=== PATIENT | male | born 1990 | race Caucasian/White ===

== ENCOUNTER → 2021-06-28 17:31 | Outpatient (CLI) | payer OTHER, SELFPAY | PROVIDERS: Referring Provider Family Medicine; Visit Provider Family Medicine | DX: U07.1 COVID-19 (principal) | CPT/HCPCS: 87635; U0005; U0003 ==

== ENCOUNTER 2021-06-29 17:24 | Outpatient (CLI) | payer OTHER, SELFPAY ==
[2021-06-29 17:45] VITALS: BP 142/90; PULSE 84; RESP 16; TEMP 36.7; O2SAT 100; BMI 27.2
[2021-06-29] MEDS: 0.9% Saline Lock 10 ML Syringe IV (17:49)
[2021-06-29 18:19] VITALS: BP 130/87; PULSE 78; RESP 16; TEMP 37.2; O2SAT 98
[2021-06-29 19:19] VITALS: BP 129/88; PULSE 78; RESP 16; TEMP 36.9; O2SAT 100
== END 2021-06-29 19:20 | disposition home or self-care (01) ==
LOC: MS3OUT 17:27 → MS3 17:28
PROVIDERS: Referring Provider Nurse Practitioner Acute Care; Visit Provider Nurse Practitioner Acute Care
DX: Z23 Encounter for immunization (principal); U07.1 COVID-19
CPT/HCPCS: J7050; M0245; Q0245; A4216

== ENCOUNTER 2022-07-23 17:42 | Emergency (ER) | payer OTHER, SELFPAY ==
[2022-07-23 17:43] VITALS: BP 178/92; PULSE 114; RESP 16; TEMP 36.4; O2SAT 98; BMI 30.1
--- NOTE | 2022-07-23 17:59 | EDS_ITS ---
HPI History of Present Illness HPI Narrative: Patient presents with bilateral lower extremity pain that has been getting worse over the past week. Please has been waxing and waning. Patient states the pain started in his popliteal areas bilaterally. Patient states the pain then radiated up into his posterior thighs bilaterally. Patient states his symptoms started in the left but is now bilateral. Patient admits to a mild cough. Patient also admits to mild headache. Patient describes his pain as aching. Patient states it is worse with sitting and with laying in bed. Patient admits to a long car trip from [place] recently. Patient also states that he noticed a bat in his house on 07/05/2022. Patient does not know if the bat had been in his house while he was sleeping or not. Patient states the bat flew in his house and went into a hole in the wall. Patient states he plug the hole in the wall and has not seen the bat since. Patient states he does not think he was bitten by the bat. Patient has not noticed any bite wounds. Chief Complaint: Lower Extremity Injury Informant: patient Onset/Context/Timing Onset: Weeks (1) Context: Gradual Onset Timing: Waxes and wanes Quality of Pain: Aching Location: Bilateral posterior thighs and knees Worsened by: Sitting, laying in bed Relieved by: Nothing Associated Symptoms Associated Symptoms: Negative for Parasthesia, Weakness or Loss of Funtion PFSH PFSH Medical History no medical history no medical history Home Medications dexamethasone 6 mg tablet 6 mg PO DAILY 06/29/21 [History Last Taken Unknown] Allergy/AdvReac Type Severity Reaction Status Date / Time No Known Allergies Allergy Verified 07/23/22 17:45 Surgical History no surgical history no surgical history Social History Smoking Status: Never smoker ROS ROS ED Constitutional Constitutional ED: Denies chills or fever(s) Eyes Eyes: Denies blurry vision or change in vision ENT ENT ED: Reports sinus pressure; Denies rhinorrhea or sore throat Cardiovascular Cardiovascular: Denies chest pain or palpitations Respiratory/Chest Respiratory/Chest: Denies cough or dyspnea Gastrointestinal Gastrointestinal: Denies nausea or vomiting Genitourinary Genitourinary ED: Denies dysuria or hematuria Musculoskeletal Musculoskeletal: Reports back pain; Denies neck pain Integumentary Denies abscess or rash Neurologic Neurologic: Reports headache(s); Denies weakness Allergic/Immunologic Allergic/Immunologic ED: Denies mouth swelling or urticaria EXAM Physical Exam Const Vital Signs: 07/23/22 17:43 07/23/22 18:08 Temperature 97.5 F L Temperature Source Temporal Pulse Rate 114 H Respiratory Rate 16 17 Blood Pressure 178/92 H Blood Pressure Mean 120 Pulse Ox 98 Oxygen Delivery Method Room Air Positive well nourished and well developed General Appearance ED: well developed HEENT Reports moist mucous membranes Neck supple and no JVD Resp normal respiratory effort and clear to auscultation bilaterally Cardio regular rate, regular rhythm and no murmurs GI normal to inspection, nondistended, normoactive bowel sounds and non-tender Palpation: soft Extremity normal to inspection and full ROM General Extremety ED: Negative for edema or tenderness General Extremity: Negative for edema Neuro oriented x3, CN's II-XII intact bilaterally and no sensory deficits noted Sensorium / Orientation: alert Motor Exam: strength 5/5 throughout Psych mental status grossly normal Skin no rashes or lesions noted and no wounds MDM MDM MDM Narrative Medical decision making narrative: Patient was given rabies immunoglobulin and rabies vaccine here. Patient was instructed to return on days 3, 7, and 14 for subsequent rabies vaccines. Venous duplex of the lower extremities was obtained and was negative. Patient was advised of his findings. Patient was instructed to take Tylenol or ibuprofen as needed for pain. Patient was instructed to follow-up with his primary care physician in 5 to 7 days. Patient understood and was agreeable with the plan. All questions were answered. Discharge Plan Triage Chief Complaint: Lower Extremity Injury ED Provider: Fran Murcia Dx/Rx/DC Orders Clinical Impression: Bilateral lower extremity pain, Exposure to bat without known bite Instructions: ED Pain, Acute, Uncertain Cause Prescriptions: No Action dexamethasone 6 mg tablet 6 mg PO DAILY Primary Care Provider: Care Physician,No Primary Referrals: Jordy Royal MD [Non-Staff] - 5-7 Days NOT,DEFINED [Non-Staff] - Activity Restrictions/Additional Instructions: Return in 3 days, 7 days, and 14 days for repeat rabies vaccine. Disposition Disposition: Home, Self Care
--- NOTE | 2022-07-23 18:00 | US_ITS ---
INDICATION: BILATERAL LATERAL THIGH PAIN X 1 WEEK EXAMINATION: US Venous Duplex LE Bilat Complete TECHNIQUE: Edmonds scale, pulse wave, and color flow Doppler imaging was performed of the lower extremity venous system. The bilateral greater saphenous, common femoral, femoral, and popliteal veins were interrogated. COMPARISON: None. FINDINGS: There is normal compression, augmentation, and signal throughout the visualized deep lower extremity veins. No mass or fluid collection. US/Venous Duplex Imag/Santi Extrem IMPRESSION: No sonographic evidence of deep venous thrombosis. Electronically Signed: Eloy Douglass MD at 19:14 EST ,
[2022-07-23 18:08] VITALS: RESP 17
[2022-07-23] MEDS: Rabies Immune Globulin/PF 300 UNIT/ML, 5 ML VIAL 1500 UNIT IM (18:40)
[2022-07-23] MEDS: Rabies Vaccine,Human Diploid 2.5 UNITS Vial IM (18:42)
[2022-07-23] MEDS: Rabies Immune Globulin/PF 300 UNIT/ML, 1 ML VIAL 410 UNIT IM (18:45)
--- NOTE | 2022-07-23 18:56 | CM.ED ---
SW Note Referral Source: Case Find Referral Reason: no PCP SW met with patient and patient's guest and introduced herself and role as [facility] Waste Water Operator. SW requested permission to speak to patient with guest present, patient agreed. SW inquired about patient's PCP, patient stated he did not currently have one. SW provided him with a list of [facility] and [facility] PCPs. Patient was receptive towards information. No other needs voiced at this time. SW remains available if needs arise. Julianne Soriano MSW, [facility]
== END 2022-07-23 19:11 | disposition home or self-care (01) ==
PROVIDERS: Emergency Provider Emergency Medicine; Visit Provider Emergency Medicine
DX: M79.604 Pain in right leg (principal); R51.9 Headache, unspecified; M79.605 Pain in left leg; Z20.3 Contact with and (suspected) exposure to rabies
CPT/HCPCS: 90375; 90675; 93970; 96372; 99282

== ENCOUNTER 2022-07-26 15:28 | Outpatient (CLI) | payer OTHER, SELFPAY ==
[2022-07-26 15:45] VITALS: BP 149/91; PULSE 71; RESP 16; TEMP 36.7; O2SAT 100; BMI 30.1
[2022-07-26 15:46] VITALS: BP 149/91; PULSE 76; RESP 16; TEMP 36.7; O2SAT 100; BMI 30.1
[2022-07-26] MEDS: Rabies Vaccine,Human Diploid 2.5 UNITS Vial IM (16:07)
[2022-07-26 16:08] VITALS: BMI 30.1
== END 2022-07-26 16:30 | disposition home or self-care (01) ==
DX: Z23 Encounter for immunization (principal)
CPT/HCPCS: 90471; 90675; 96372

== ENCOUNTER 2022-07-30 17:06 | Outpatient (CLI) | payer OTHER, SELFPAY ==
[2022-07-30 17:07] VITALS: BP 152/93; PULSE 70; PULSE 76; RESP 15; RESP 16; TEMP 36.7; O2SAT 100; BMI 30.1
[2022-07-30] MEDS: Rabies Vaccine,Human Diploid 2.5 UNITS Vial IM (17:32)
== END 2022-07-30 18:19 | disposition home or self-care (01) ==
DX: Z23 Encounter for immunization (principal)
CPT/HCPCS: 90675; 96372

== ENCOUNTER 2022-08-05 22:51 | Emergency (ER) | payer OTHER, SELFPAY ==
[2022-08-05 22:52] VITALS: BP 191/114; PULSE 84; RESP 16; TEMP 36; O2SAT 100; BMI 30.1
--- NOTE | 2022-08-05 23:20 | EKG12_ITS ---
Test Reason : CP Blood Pressure : / mmHG Vent. Rate : 080 BPM Atrial Rate : 080 BPM P-R Int : 152 ms QRS Dur : 096 ms QT Int : 372 ms P-R-T Axes : 052 073 007 degrees QTc Int : 429 ms Normal sinus rhythm Nonspecific T wave abnormality Abnormal ECG Confirmed by HOLA SANTOYO, BRYAN ([id number]), editorial manager DEEPIKA WHITING ([id number]) on 08/07/2022 9:04:54 AM Referred By: CARISA Confirmed By:BRYAN SIMENTAL MD
--- NOTE | 2022-08-05 23:32 | RAD_ITS ---
STUDY: X-RAY CHEST REASON FOR EXAM: Male, 32 years old. Chest pain TECHNIQUE: PA and lateral views of the chest. COMPARISON: Limited comparison December 16, 2012 FINDINGS: The lungs are clear and expanded. There is no demonstrated pleural abnormality. Normal size heart. Normal mediastinum and altaf. Normal visualized pulmonary arteries. Normal visualized aortic arch and descending thoracic aorta. Normal visualized thoracic spine. Normal visualized ribs, clavicles, and shoulders. There is no demonstrated abnormality of the visualized soft tissue structures of the upper abdomen. RAD/Chest PA and Lateral IMPRESSION: No demonstrated acute cardiopulmonary process. Electronically Signed: Zahira Whitman MD at 23:49 EST Reading Location ID and State: [facility] / [place] Tel , Service support ,
--- NOTE | 2022-08-05 23:32 | ED.VIS.CHEST ---
HPI History of Present Illness Chief Complaint: Chest Pain Informant: patient Narrative Narrative: Patient is a 32-year-old male with no single past medical history presenting with chest pain. Patient started having intermittent pain going from his left underarm into his biceps yesterday. He states it lingers and lasts about 30 minutes to an hour at a time. Not clear any aggravating or alleviating factors. He then started having episodes of chest discomfort over his left pec today. He states they have had maybe 5-10 episodes today. Again does not know any triggers. He describes it more as a tightness. He also developed discomfort in his left shoulder blade yesterday morning. He states that is intermittent and mild. Notes does seem worse if he takes a deep breath. He has had a mild cough ongoing for some time. Denies any history of DVT or PE but did return from [place] by flight yesterday. Denies any nausea, vomiting or diaphoresis. Patient was seen for leg swelling after driving from [place] earlier this month and had a negative DVT study at that time. Only family history of coronary disease is his paternal grandfather who had open heart surgery in his 70s and paternal aunts who from presumed heart attack in her 60s. No other complaints at this time. PFSH PFS Home Medications NK 08/05/22 [History Last Taken Unknown] Allergy/AdvReac Type Severity Reaction Status Date / Time No Known Allergies Allergy Verified 08/05/22 22:54 Social History Smoking Status: Never smoker ROS ROS ED Constitutional Constitutional ED: Denies chills or fever(s) ENT ENT ED: Denies sore throat Cardiovascular Cardiovascular: Reports as per HPI and chest pain Respiratory/Chest Respiratory/Chest: Reports cough; Denies dyspnea or dyspnea on exertion Gastrointestinal Gastrointestinal: Denies nausea or vomiting Musculoskeletal Musculoskeletal: Denies arthralgias, back pain or myalgias Integumentary Denies rash Neurologic Neurologic: Denies paresthesias or weakness Psychiatric Psychiatric: Denies anxiety EXAM Physical Exam Const Vital Signs: 08/05/22 22:52 08/05/22 23:06 08/05/22 23:31 Temperature 96.8 F L Temperature Source Temporal Pulse Rate 84 Respiratory Rate 16 Respiratory Effort Normal Non-Labored Blood Pressure 191/114 H Blood Pressure Mean 139 Pulse Ox 100 Oxygen Delivery Method Room Air Room Air 08/06/22 00:26 Temperature Temperature Source Pulse Rate 70 Respiratory Rate 11 L Respiratory Effort Blood Pressure 133/78 H Blood Pressure Mean 96 Pulse Ox 96 Oxygen Delivery Method Room Air Positive well nourished and well developed General Appearance ED: well developed and NAD HEENT Reports moist mucous membranes normocephalic and atraumatic Eyes PERRL and EOMs intact bilaterally Neck supple and no JVD Chest Wall inspection of chest normal and palpation of chest normal Chest Narrative: No reproducible chest wall tenderness Resp normal respiratory effort and clear to auscultation bilaterally Effort and Inspection: Negative for respiratory distress Auscultation: Negative for wheezes or diminished lung sounds Cardio regular rate, regular rhythm and no murmurs GI normal to inspection, nondistended, normoactive bowel sounds and soft to palpation Back/Spine no thoracic nor lumbar tenderness Extremity normal to inspection General Extremety ED: Negative for edema General Extremity: Negative for edema Neuro oriented x3 Sensorium / Orientation: awake and alert Motor Exam: Negative for general weakness Psych mental status grossly normal Skin no rashes or lesions noted Heart Score History: Slightly/Non-Suspicious ECG: Nonspecific Repolarization Age: </= 45 years Risk Factors: 1 or 2 Risk Factors Troponin: </= Normal Limit Score: 2 MDM MDM MDM Narrative Medical decision making narrative: Patient is evaluated for left arm pain, left-sided chest pain as well as mild left shoulder blade pain. Initial vital signs are significant for hypertension however on repeat without any intervention his blood pressure normalizes. EKG does not show any acute and I do not have any comparisons. CBC, BMP, delta high-sensitivity troponin and D-dimer are all normal. Patient is low risk per Wells criteria I do not think a CTA is indicated. Do not suspect PE. Given his nonischemic EKG and normal repeat high-sensitivity troponins I do not think this is ACS I do not think requires admission for further cardiac evaluation. Chest x-ray does not show any pneumothorax or pneumonia. Patient declines any pain medication in the ER. Is given referral for primary care doctor for outpatient follow-up. Will be discharged home. Encouraged to alternate ibuprofen and Tylenol at home for pain. Low suspicion for pericarditis or myocarditis given the EKG and troponins. We discharged home. Lab Data Attestation: I reviewed the patient's lab results. Labs: Laboratory Results - last 24 hr 08/05/22 08/05/22 08/05/22 23:05 23:05 23:05 WBC 7.9 RBC 5.10 Hgb 14.7 Hct 41.6 MCV 81.6 MCH 28.8 MCHC 35.3 RDW Std Deviation 35.2 RDW Coeff of Patsy 11.9 Plt Count 243 MPV 9.5 Immature Gran % (Auto) 1.100 H Neut % (Auto) 46.5 L Lymph % (Auto) 39.4 [place] % (Auto) 9.1 Eos % (Auto) 3.5 Baso % (Auto) 0.4 Absolute Neuts (auto) 3.7 Absolute Lymphs (auto) 3.11 Nucleated RBC % 0 D-Dimer Quant (PE/DVT) < 0.27 L Sodium 139 Potassium 3.8 Chloride 104 Carbon Dioxide 28.0 Anion Gap 7 BUN 17 Creatinine 1.02 Estim Creat Clear Calc 109.34 Est GFR (MDRD) Af Amer 110 Est GFR (MDRD) Non-Af 91 BUN/Creatinine Ratio 16.7 Glucose 103 Calcium 9.6 Troponin I High Sens 43 08/06/22 01:35 WBC RBC Hgb Hct MCV MCH MCHC RDW Std Deviation RDW Coeff of Patsy Plt Count MPV Immature Gran % (Auto) Neut % (Auto) Lymph % (Auto) [place] % (Auto) Eos % (Auto) Baso % (Auto) Absolute Neuts (auto) Absolute Lymphs (auto) Nucleated RBC % D-Dimer Quant (PE/DVT) Sodium Potassium Chloride Carbon Dioxide Anion Gap BUN Creatinine Estim Creat Clear Calc Est GFR (MDRD) Af Amer Est GFR (MDRD) Non-Af BUN/Creatinine Ratio Glucose Calcium Troponin I High Sens 46 Radiography Diagnostic Testing: Clinical Impression(s) from Imaging Studies Chest X-Ray 08/05/22 23:32 IMPRESSION: No demonstrated acute cardiopulmonary process. Electronically Signed: Zahira Whitman MD at 23:49 EST , Rhythm Strip Rhythm Strip: Sinus Rhythm Rate: 80 Ectopy: None EKG Initial EKG: Attestation: I personally reviewed and interpreted this EKG as follows: Interpretation: Sinus Rhythm Comments: Normal sinus rhythm at a rate of 80 bpm Normal axis Normal intervals Normal ST segments with nonspecific T wave abnormalities in V3 through V6 Prior EKG tracings: not available for review Prior: No Prior Discharge Plan Triage Chief Complaint: Chest Pain ED Provider: Jeanine Kirkpatrick Dx/Rx/DC Orders Clinical Impression: Arm pain, left, Left-sided chest pain, Acute left-sided thoracic back pain Instructions: ED Chest Pain, Noncardiac Prescriptions: No Action NK Primary Care Provider: Care Physician,No Primary Referrals: Fast,Carmen, DO [Med Staff - Assistant Housekeeping Manager] - As soon as possible Care Physician,No Primary [Primary Care Provider] - Disposition Disposition: Home, Self Care
[2022-08-05 23:52] LABS: Absolute Lymphocyte Count 3.11 X10^3/uL (0.83-4.51); Absolute Neutrophil Count 3.7 X10^3/uL (2.0-7.7); Basophil# 0.03 X10^3/uL; Basophil% 0.4 % (0-1); Eosinophil# 0.28 X10^3/uL; Eosinophils% 3.5 % (0-5); Hematocrit 41.6 % (40-54); Hemoglobin 14.7 g/dL (13.0-16.5); Lymphocyte # 3.11 X10^3/ul (0.83-4.51); Lymphocyte % 39.4 % (19-41); Mean Corp Hgb Conc 35.3 g/dL (32-36); Mean Corpuscular Hgb 28.8 pg (27.0-32.0); Mean Corpuscular Volume 81.6 fL (80-94); Mean Platelet Vol. 9.5 fl (6.2-12.0); Monocyte# 0.72 X10^3/uL; Monocyte% 9.1 % (0-10); NRBC Flagged by Analyzer 0 % (0-5); Neutrophil # 3.66 X10^3/uL (2.7-7.7); Neutrophil % 46.5 % (47-70); Platelet Count 243 K/mm3 (150-450); RBC Distribution Width CV 11.9 % (11.6-14.6); RBC Distribution Width SD 35.2 fl (35.1-43.9); White Blood Count 7.9 K/mm3 (4.4-11.0)
[2022-08-06] LABS: Anion Gap 7 (5-15); BUN 17 mg/dL (7-18); BUN/Creat Ratio 16.7 RATIO (10-20); Calcium,Total 9.6 mg/dL (8.5-10.1); Chloride 104 mmol/L (98-107); Creatinine, Serum 1.02 mg/dL (0.70-1.30); D-Dimer Quantitative (DVT/PE) < 0.27 FEU/ug/m (0.27-0.49); EST Glomerular Filtration Rate 91 mL/min (>60); Est Glom Filt Rate - Afr Amer 110 mL/min (>60); Estimated Creatinine Clearance 109.34 ml/min; Glucose 103 mg/dL (74-106); Potassium 3.8 mmol/L (3.5-5.1); Sodium Level 139 mmol/L (136-145); Troponin-I HS (w/2H Reflex) 43 pg/mL (3.0-78.0)
[2022-08-06 00:26] VITALS: BP 133/78; PULSE 70; RESP 11; O2SAT 96
[2022-08-06 01:33] LABS: Reflex Troponin-HS? (from REC) Y
[2022-08-06 01:58] LABS: Troponin-I HS 46 pg/mL (3.0-78.0)
[2022-08-06 02:54] VITALS: BP 127/82; PULSE 63; RESP 18; O2SAT 97
== END 2022-08-06 02:55 | disposition home or self-care (01) ==
PROVIDERS: Emergency Provider Emergency Medicine; Visit Provider Emergency Medicine
DX: R07.9 Chest pain, unspecified (principal); M79.602 Pain in left arm; M54.6 Pain in thoracic spine
CPT/HCPCS: 71046; 80048; 84484; 85025; 85379; 93005; 99284; A4216

== ENCOUNTER 2022-08-06 02:12 | Outpatient (CLI) | payer OTHER, SELFPAY ==
[2022-08-06] MEDS: Rabies Vaccine,Human Diploid 2.5 UNITS Vial IM (02:57)
[2022-08-06 03:04] VITALS: BP 121/82; PULSE 63; RESP 18; O2SAT 97; BMI 30.1
== END 2022-08-06 02:55 | disposition home or self-care (01) ==
LOC: ED 05:20
DX: Z23 Encounter for immunization (principal)
CPT/HCPCS: 90675; 96372

== ENCOUNTER → 2022-11-25 | Outpatient (CLI) | payer OTHER, SELFPAY ==
[2022-11-25 11:49] LABS: Anion Gap 6 (5-15); BUN 16 mg/dL (7-18); BUN/Creat Ratio 15.2 RATIO (10-20); Calcium,Total 9.1 mg/dL (8.5-10.1); Chloride 107 mmol/L (98-107); Cholesterol 183 mg/dL (200); Creatinine, Serum 1.05 mg/dL (0.70-1.30); EST Glomerular Filtration Rate 88 mL/min (>60); Est Glom Filt Rate - Afr Amer 106 mL/min (>60); Glucose 88 mg/dL (74-106); High Density Lipoprotein 37 mg/dL; Sodium Level 141 mmol/L (136-145); Triglycerides 112 mg/dL; Very Low Density Lipoprotein 22 mg/dL (5-40)
== END | disposition home or self-care (01) ==
LOC: MFPLAB 08:28
PROVIDERS: PCP Family Medicine; Visit Provider Family Medicine
DX: Z00.00 Encounter for general adult medical examination without abnormal findings (principal)
CPT/HCPCS: 36415; 80048; 80061

== ENCOUNTER → 2022-12-04 | Outpatient (CLI) | payer OTHER, SELFPAY ==
--- NOTE | 2022-12-04 10:06 | CT_ITS ---
STUDY: CT ABDOMEN AND PELVIS WITH CONTRAST REASON FOR EXAM: Male, 32 years old. ABD PAIN- EPIGASTRIC AND RUQ PAIN RADIATION DOSAGE (If Supplied By Facility): CTDIvol = ( 14.55 ) mGy, DLP = ( 1107.10 ) mGycm TECHNIQUE: Transaxial images were obtained from the dome of the diaphragm to the symphysis pubis with oral contrast. Oral and IV Gastrografin and 100mL Isovue-370 was administered. Sagittal and coronal images were reconstructed. Individualized dose optimization techniques were used for this CT. COMPARISON: None. FINDINGS: The visualized lung bases are unremarkable. The visualized portions of the heart are within normal limits. Normal liver. Normal gallbladder and extrahepatic biliary system. Normal spleen. Normal pancreas. Normal bilateral adrenal glands. Normal right kidney. Normal left kidney. Normal visualized stomach. Normal small intestine. Normal colon. The appendix is visualized and appears normal. Appendix seen on coronal recon images 50 through 57 Normal abdominal aorta. Normal inferior vena cava. Normal retroperitoneum. Normal urinary bladder. Normal abdominal wall. Normal osseous structures. CT/Abdomen/Pelvis WITH Contrast IMPRESSION: No suspicious solid organ abnormality No free intraperitoneal fluid, air, or suspicious adenopathy Normal appendix visualized Electronically Signed: Erwin Voss MD at 12:52 EDT ,
== END | disposition home or self-care (01) ==
LOC: CT 10:05
PROVIDERS: PCP Family Medicine; Referring Provider Family Medicine; Visit Provider Family Medicine
DX: R10.9 Unspecified abdominal pain (principal)
CPT/HCPCS: 74177; Q9967

== ENCOUNTER → 2022-12-04 | Outpatient (CLI) | payer OTHER, SELFPAY ==
[2022-12-04 10:09] LABS: Absolute Lymphocyte Count 1.96 X10^3/uL (0.83-4.51); Absolute Neutrophil Count 2.6 X10^3/uL (2.0-7.7); Basophil# 0.02 X10^3/uL; Basophil% 0.4 % (0-1); Eosinophil# 0.15 X10^3/uL; Eosinophils% 2.8 % (0-5); Hematocrit 44.9 % (40-54); Hemoglobin 15.2 g/dL (13.0-16.5); Lymphocyte # 1.96 X10^3/ul (0.83-4.51); Lymphocyte % 36.8 % (19-41); Mean Corp Hgb Conc 33.9 g/dL (32-36); Mean Corpuscular Hgb 28.4 pg (27.0-32.0); Mean Corpuscular Volume 83.9 fL (80-94); Mean Platelet Vol. 9.4 fl (6.2-12.0); Monocyte# 0.57 X10^3/uL; Monocyte% 10.7 % (0-10); NRBC Flagged by Analyzer 0 % (0-5); Neutrophil # 2.61 X10^3/uL (2.7-7.7); Neutrophil % 49.1 % (47-70); Platelet Count 211 K/mm3 (150-450); RBC Distribution Width CV 12.5 % (11.6-14.6); RBC Distribution Width SD 37.8 fl (35.1-43.9); Red Blood Count 5.35 M/mm3 (4.6-6.2); White Blood Count 5.3 K/mm3 (4.4-11.0)
[2022-12-04 11:01] LABS: ALB/GLOB Ratio 1.4 RATIO (0.9-2.4); AST(SGOT) 17 U/L (15-37); Alanine Aminotransfer ALT/SGPT 24 U/L (16-61); Albumin, Serum 4.3 g/dL (3.2-5.0); Alkaline Phosphatase 47 U/L (45-117); Anion Gap 9 (5-15); BUN 14 mg/dL (7-18); BUN/Creat Ratio 14.6 RATIO (10-20); Calcium,Total 9.3 mg/dL (8.5-10.1); Chloride 104 mmol/L (98-107); Creatinine, Serum 0.96 mg/dL (0.70-1.30); EST Glomerular Filtration Rate 98 mL/min (>60); Est Glom Filt Rate - Afr Amer 118 mL/min (>60); Globulin 3.1 g/dL (2.2-4.2); Glucose 97 mg/dL (74-106); Lipase 33 U/L (13-75); Potassium 3.7 mmol/L (3.5-5.1); Protein, Total 7.4 g/dL (6.4-8.2); Sodium Level 139 mmol/L (136-145)
[2022-12-06 07:08] LABS: HEPATITIS B SURFACE AG Negative (Negative); Hep C Antibodies Non Reactive (Non Reactive); Hepatitis A IgM Antibody Negative (Negative); Hepatitis B Core AB IgM Negative (Negative)
== END | disposition home or self-care (01) ==
LOC: MFPLAB 09:20
PROVIDERS: PCP Family Medicine; Visit Provider Family Medicine
DX: R10.9 Unspecified abdominal pain (principal)
CPT/HCPCS: 36415; 80053; 80074; 83690; 85025

== ENCOUNTER → 2023-04-23 | Outpatient (CLI) | payer OTHER, SELFPAY ==
[2023-04-23 12:31] LABS: Erythrocyte Sedimentation Rate < 1 mm/hr (0-20)
[2023-04-23 13:18] LABS: CRP < 2.90 mg/L (0.0-3.0)
[2023-04-24 08:12] LABS: Lyme Scn Total Ab w/Rflx Negative (Negative)
[2023-04-24 14:09] LABS: ANTINUCLEAR ANTIBODIES DIRECT Negative (Negative)
== END | disposition home or self-care (01) ==
LOC: MFPLAB 10:23
PROVIDERS: PCP Family Medicine; Visit Provider Family Medicine
DX: M25.50 Pain in unspecified joint (principal)
CPT/HCPCS: 36415; 85652; 86038; 86140; 86618

== ENCOUNTER → 2023-05-08 | Outpatient (CLI) | payer OTHER, SELFPAY ==
[2023-05-08 15:18] LABS: Absolute Lymphocyte Count 2.06 X10^3/uL (0.83-4.51); Absolute Neutrophil Count 3.1 X10^3/uL (2.0-7.7); Basophil# 0.02 X10^3/uL; Basophil% 0.3 % (0-1); Eosinophil# 0.18 X10^3/uL; Eosinophils% 3.1 % (0-5); Hematocrit 44.1 % (40-54); Hemoglobin 14.7 g/dL (13.0-16.5); Lymphocyte # 2.06 X10^3/ul (0.83-4.51); Mean Corp Hgb Conc 33.3 g/dL (32-36); Mean Corpuscular Hgb 28.2 pg (27.0-32.0); Mean Corpuscular Volume 84.5 fL (80-94); Mean Platelet Vol. 9.9 fl (6.2-12.0); Monocyte% 8.5 % (0-10); NRBC Flagged by Analyzer 0 % (0-5); Neutrophil % 52.8 % (47-70); Platelet Count 218 K/mm3 (150-450); RBC Distribution Width CV 12.3 % (11.6-14.6); RBC Distribution Width SD 37.3 fl (35.1-43.9); Red Blood Count 5.22 M/mm3 (4.6-6.2); White Blood Count 5.9 K/mm3 (4.4-11.0)
[2023-05-08 15:48] LABS: ALB/GLOB Ratio 1.3 RATIO (0.9-2.4); AST(SGOT) 34 U/L (15-37); Alanine Aminotransfer ALT/SGPT 40 U/L (16-61); Albumin, Serum 4.3 g/dL (3.2-5.0); Alkaline Phosphatase 47 U/L (45-117); Anion Gap 6 (5-15); BUN 17 mg/dL (7-18); BUN/Creat Ratio 14.8 RATIO (10-20); Calcium,Total 9.1 mg/dL (8.5-10.1); Chloride 105 mmol/L (98-107); Creatinine, Serum 1.15 mg/dL (0.70-1.30); EST Glomerular Filtration Rate 79 mL/min (>60); Est Glom Filt Rate - Afr Amer 96 mL/min (>60); Globulin 3.2 g/dL (2.2-4.2); Glucose 87 mg/dL (74-106); Potassium 3.7 mmol/L (3.5-5.1); Protein, Total 7.5 g/dL (6.4-8.2); Sodium Level 139 mmol/L (136-145)
== END | disposition home or self-care (01) ==
LOC: MTLAB 12:36
PROVIDERS: PCP Family Medicine; Referring Provider Family Medicine; Visit Provider Family Medicine
DX: R42 Dizziness and giddiness (principal)
CPT/HCPCS: 36415; 80053; 85025

== ENCOUNTER → 2023-07-03 | Outpatient (CLI) | payer OTHER, SELFPAY ==
[2023-07-03 10:28] LABS: Absolute Lymphocyte Count 1.79 X10^3/uL (0.83-4.51); Basophil# 0.02 X10^3/uL; Basophil% 0.4 % (0-1); Eosinophil# 0.15 X10^3/uL; Eosinophils% 2.7 % (0-5); Hematocrit 45.5 % (40-54); Hemoglobin 15.4 g/dL (13.0-16.5); Lymphocyte # 1.79 X10^3/ul (0.83-4.51); Lymphocyte % 32.5 % (19-41); Mean Corp Hgb Conc 33.8 g/dL (32-36); Mean Corpuscular Hgb 28.3 pg (27.0-32.0); Mean Corpuscular Volume 83.5 fL (80-94); Mean Platelet Vol. 9.6 fl (6.2-12.0); Monocyte# 0.51 X10^3/uL; Monocyte% 9.3 % (0-10); NRBC Flagged by Analyzer 0 % (0-5); Neutrophil # 3.01 X10^3/uL (2.7-7.7); Neutrophil % 54.7 % (47-70); Platelet Count 209 K/mm3 (150-450); RBC Distribution Width CV 12.7 % (11.6-14.6); RBC Distribution Width SD 38.2 fl (35.1-43.9); Red Blood Count 5.45 M/mm3 (4.6-6.2); White Blood Count 5.5 K/mm3 (4.4-11.0)
[2023-07-03 10:39] LABS: ALB/GLOB Ratio 1.4 RATIO (0.9-2.4); AST(SGOT) 11 U/L (15-37); Alanine Aminotransfer ALT/SGPT 20 U/L (16-61); Albumin, Serum 4.1 g/dL (3.2-5.0); Alkaline Phosphatase 43 U/L (45-117); Anion Gap 6 (5-15); BUN 15 mg/dL (7-18); BUN/Creat Ratio 14.4 RATIO (10-20); Calcium,Total 9.3 mg/dL (8.5-10.1); Chloride 107 mmol/L (98-107); Creatinine, Serum 1.04 mg/dL (0.70-1.30); EST Glomerular Filtration Rate 89 mL/min (>60); Est Glom Filt Rate - Afr Amer 107 mL/min (>60); Glucose 96 mg/dL (74-106); Lipase 33 U/L (13-75); Potassium 4.3 mmol/L (3.5-5.1); Protein, Total 7.1 g/dL (6.4-8.2); Sodium Level 141 mmol/L (136-145)
== END | disposition home or self-care (01) ==
LOC: MFPLAB 09:07
PROVIDERS: PCP Family Medicine; Visit Provider Family Medicine
DX: R10.9 Unspecified abdominal pain (principal)
CPT/HCPCS: 36415; 80053; 83690; 85025

== ENCOUNTER → 2023-07-03 | Outpatient (CLI) | payer OTHER, SELFPAY ==
--- NOTE | 2023-07-03 09:20 | US_ITS ---
STUDY: ABDOMINAL ULTRASOUND - RIGHT UPPER QUADRANT REASON FOR VISIT: Male, 32 years old abdominal pain. TECHNIQUE: Ultrasound evaluation of the right upper quadrant was performed with real-time and static stovall-scale imaging. TECHNICAL QUALITY: Adequate. COMPARISON: None. FINDINGS: Liver: The liver measures 15.7 cm. There is normal echogenicity of the liver. The bile ducts are within normal limits. There is hepatic color flow. The direction of portal flow is hepatopetal. There is no demonstrated mass lesion. Gallbladder: Normal distended gallbladder. The gallbladder wall measures 1.5 mm. There is a negative sonographic Medina''s sign. There is no pericholecystic fluid. There are no gallstones. Common Bile Duct (C.B.D.): The common bile duct measures 4.4 mm. Pancreas: There is nonvisualization of the pancreas due to overlying bowel gas. There is normal echogenicity of the pancreas. There is no demonstrated pancreatic mass or cyst. Right Kidney: Normal size of the right kidney. The right kidney measures 10 cm x 5 cm x 5.3 cm. Normal renal cortex. The right cortex measures 1.4 cm. There is no demonstrated renal mass or cyst. There is no right hydronephrosis. US/Abdomen Limited IMPRESSION: Normal right upper quadrant ultrasound examination. Electronically Signed: Frankie Morillo MD at 13:52 EST ,
== END | disposition home or self-care (01) ==
LOC: US 09:18
PROVIDERS: PCP Family Medicine; Referring Provider Family Medicine; Visit Provider Family Medicine
DX: R10.9 Unspecified abdominal pain (principal)
CPT/HCPCS: 76705

== ENCOUNTER → 2023-07-29 | Outpatient (CLI) | payer OTHER, SELFPAY ==
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
[2023-07-29 13:22] LABS: Thyroid Stim Hormone (TSH) 1.34 uIU/mL (0.358-3.74)
== END | disposition home or self-care (01) ==
LOC: LAB 11:56
PROVIDERS: PCP Family Medicine; Referring Provider Internal Medicine Cardiovascular Disease; Visit Provider Internal Medicine Cardiovascular Disease
DX: R00.0 Tachycardia, unspecified (principal); R00.2 Palpitations
CPT/HCPCS: 36415; 84443

== ENCOUNTER → 2023-08-04 | Outpatient (CLI) | payer OTHER, SELFPAY ==
--- NOTE | 2023-08-04 10:36 | ECHOD_ITS ---
Reason For Study: TACHYCARDIA Procedure This was a 2D Doppler, Color Flow transthoracic echocardiogram. Exam performed in department. Left Ventricle Normal size and thickness. The left ventricular ejection fraction is 65 %. Normal diastology for age. Right Ventricle A moderator band is seen in the right ventricle. Atria The left and right atria are normal. Mitral Valve Trivial mitral valve insufficiency. Tricuspid Valve Trivial tricuspid valve insufficiency. Right ventricular systolic pressure estimated to be 40 mmHg. Mild pulmonary hypertension. Aortic Valve Trisinus/trileaflet aortic valve. Pulmonic Valve Trivial pulmonic valve insufficiency. Great Vessels Normal sized aortic root. Pericardium/Pleural No pericardial effusion. MMode/2D Measurements & Calculations LVIDd: 4.4 cm IVSd: 1.1 cm Ao root diam: 3.3 cm LVIDs: 2.9 cm LVPWd: 1.0 cm RVDd: 4.2 cm FS: 35.0 % LAV(MOD-bp): 46.3 ml LVAd ap4: 32.7 cm2 SV(MOD-sp4): 69.2 ml LAV(MOD-bp) Indexed: 22.2 ml/m2 LVLd ap4: 8.7 cm LAV(MOD-sp2): 43.4 ml EDV(MOD-sp4): 98.8 ml LAV(MOD-sp4): 48.6 ml EDV(sp4-el): 104.3 ml LVAs ap4: 15.6 cm2 LVLs ap4: 7.2 cm ESV(MOD-sp4): 29.5 ml ESV(sp4-el): 28.9 ml EF(MOD-sp4): 70.1 % EF(sp4-el): 72.3 % SV(sp4-el): 75.4 ml LA A4 area: 18.7 cm2 LA dimension(2D): 3.7 cm RA A4 area: 16.7 cm2 Time Measurements MV dec time: 0.20 sec Doppler Measurements & Calculations MV E max vitaly: 93.1 cm/sec Lat Peak E' Vitaly: 18.0 cm/sec Med Peak E' Vitaly: 13.1 cm/sec MV A max vitaly: 50.7 cm/sec E/E' lat: 5.2 E/E' med: 7.1 MV E/A: 1.8 Ao V2 max: 137.4 cm/sec LV V1 max: 114.5 cm/sec PA V2 max: 141.0 cm/sec Ao max P.6 mmHg LV V1 max P.2 mmHg TR max vitaly: 297.1 cm/sec TR max P.3 mmHg ECHO/Echo Complete Interpretation Summary The left ventricular ejection fraction is 65 %. Right ventricular systolic pressure estimated to be 40 mmHg. Ordering Physician: Oswald Briggs Referring Physician: BRYAN MONTANO Performed By: Modesta Erazo RDCS
--- OUTSIDE RECORDS SUMMARY | 2023-08-04 12:10 | XMS RPT_ITS | CCD ---
Author Name Unknown Address [address] [place] [address] Organization [facility] Care Team Providers Care Public Service Administrator Name Role Phone Unavailable Primary Care Provider [...] 17:19-0500 Body temperature 98.29 [degF] Gilberto Hopper APRN.ANIMAL ANATOMIST Work Phone: [facility] 07-23-2022 17:19-0500 Body weight 96.71 kg Gilberto Hopper APRN.ANIMAL ANATOMIST Work Phone: [facility] 07-23-2022 17:19-0500 Diastolic blood pressure 98 mm[Hg] Gilberto Hopper APRN.ANIMAL ANATOMIST Work Phone: [facility] 07-23-2022 17:19-0500 Heart rate 101 /min Gilberto Hopper APRN.ANIMAL ANATOMIST Work Phone: [facility] 07-23-2022 17:19-0500 Respiratory rate 16 /min Gilberto Hopper APRN.ANIMAL ANATOMIST Work Phone: [facility] 07-23-2022 17:19-0500 SaO2% (BldA) [Mass fraction] 99 % Gilberto Hopper APRN.CNP Work Phone: [facility] 07-23-2022 17:19-0500 Systolic blood pressure 152 mm[Hg] Gilberto Hopper APRN.CNP Work Phone: [facility] Encounters Encounter Date Encounter Type Care Provider Facility Start: 07-23-2022 End: 07-23-2022 ambulatory Facility:[facility] Start: 07-23-2022 End: 07-23-2022 Patient encounter procedure Gilberto Hopper APRN.ANIMAL ANATOMIST Work Phone: [facility] Plan of Treatment Date Care Activity Detail Author Start: 07-14-2022 DEPRESSION ASSESSMENT DEPRESSION ASS ESSMENT [facility] Start: 03-14-2022 Influenza vaccination INFLUENZA (#1) [facility] Start: 2010 HEPATITIS C SCREENING HEPATITIS C SC REETIMOTHY [facility] Start: 2010 HIV SCREENING HIV SCREENING [facility] Start: 01-24-2005 Urine microalbumin profile DTAP,TDAP ,TD (6 - Tdap) [facility] Start: 01-05-1993 COVID-19 VACCINE (#1) COVID-19 VACCI NE (#1) [facility] Immunizations Immunization Date Immunization Notes Care Provider Sonia beckford 02-10-2007 Meningococcal, MCV4, unspecified conjugate formulation(groups A, C, Y and W-135) Gilberto Hopper APRN.ANIMAL ANATOMIST Work Phone: [facility] 01-23-2005 measles, mumps and rubella virus vaccine Gilberto Hopper APRN.ANIMAL ANATOMIST Work Phone: [facility] Work Phone: 01-23-2005 tetanus and diphther ia toxoids, adsorbed, preservative free, for adult use (2 Lf of tetanus toxoid and 2 Lf of diphtheria toxoid) Gilberto Hopper APRN.ANIMAL ANATOMIST Work Phone: [facility] Work Phone: 03-02-2003 hepatitis B vaccine, pediatric or pediatric/adolescent dosage Gilberto Hopper APRN.ANIMAL ANATOMIST Work Phone: [facility] Work Phone: 03-08-2002 hepatitis B vaccine, pediatric or pediatric/adolescent dosage Gilberto King DAVIDN.ANIMAL ANATOMIST Work Phone: [facility] Work Phone: 12-16-2001 hepatitis B vaccine, pediatric or pediatric/adolescent dosage Gilberto Ward CUSTOMER SERVICE REP.[facility] Work Phone: [facility] Work Phone: 08-17-1997 diphtheria, tetanus toxoids and acellular pertussis vaccine Gilberto Ward CUSTOMER SERVICE REP.[facility] Work Phone: [facility] Work Phone: 08-17-1997 trivalent poliovirus vaccine, live, oral Gilberto King DAVIDN.[facility] Work Phone: [facility] Work Phone: 06-13-1995 Chicken Pox (disease) Jason Hopper APRN.ANIMAL ANATOMIST Work Phone: [facility] Work Phone: 01-08-1994 diphtheria, tetanus toxoids and acellular pertussis vaccine Gilberto King DAVIDN.[facility] Work Phone: [facility] Work Phone: 01-08-1994 trivalent poliovirus vaccine, live, oral Gilberto King DAVIDN.[facility] Work Phone: [facility] Work Phone: 10-08-1993 haemophilus influenz ae type b vaccine, HbOC conjugate Gilberto King DAVIDN.ANIMAL ANATOMIST Work Phone: [facility] Work Phone: 10-08-1993 measles, mumps and rubella virus vaccine Gilberto King DAVIDN.ANIMAL ANATOMIST Work Phone: [facility] Work Phone: 01-11-1993 diphtheria, tetanus toxoids and pertussis vaccine Gilberto King DAVIDN.[facility] Work Phone: [facility] Work Phone: 01-11-1993 haemophilus influenz ae type b vaccine, HbOC conjugate Gilberto Ward CUSTOMER SERVICE REP.ANIMAL ANATOMIST Work Phone: [facility] Work Phone: 1992 diphtheria, tetanus toxoids and pertussis vaccine Gilberto Ward CUSTOMER SERVICE REP.ANIMAL ANATOMIST Work Phone: [facility] Work Phone: 1992 haemophilus influenz ae type b vaccine, HbOC conjugate Gilberto Ward CUSTOMER SERVICE REP.ANIMAL ANATOMIST Work Phone: [facility] Work Phone: 1992 trivalent poliovirus vaccine, live, oral Gilberto Ward CUSTOMER SERVICE REP.ANIMAL ANATOMIST Work Phone: [facility] Work Phone: 1992 diphtheria, tetanus toxoids and pertussis vaccine Gilberto Ward CUSTOMER SERVICE REP.ANIMAL ANATOMIST Work Phone: [facility] Work Phone: 1992 haemophilus influenz ae type b vaccine, HbOC conjugate Gilberto Hopper CUSTOMER SERVICE REP.ANIMAL ANATOMIST Work Phone: [facility] Work Phone: 1992 trivalent poliovirus vaccine, live, oral Gilberto Ward CUSTOMER SERVICE REP.ANIMAL ANATOMIST Work Phone: [facility] Work Phone: Payers Date Payer Category Payer Private Health Insurance [facility] CHOICE PLUS [id number] 2022-Present [phone] [address] [address] [place] [address] O [id number] 2022 Unknown [id number] Social History Date Type Detail Facility Tobacco smoking stat [facility] Never smoked tobacco [facility] Start: 07-23-2022 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 Author [...] ICD10: R42 As above. Gilberto Hopper APRN.CNP [facility] History of Present illness Narrative 07-23-2022 [...] Gilberto Hopper APRN.DICK documented in this encounter [facility] Evaluation note Note Date & Type Note Facility documented in this encounter [facility] Summary Purpose Family History No Family History [...] or prosecute any alcohol or drug abuse patient.[facility] Reason for Visit (unrecogniz ed section and [...] BE BASED ON THE PRIMARY CLINICAL RECORDS. [employer] provides no warranty or guarantee of the accuracy or completeness of information in this document.
--- NOTE | 2023-08-07 16:00 | STRESSREP_ITS ---
Stress Test Report Date: 08/04/2023 Procedure: Exercise tolerance test Indications: Chest pain Consent: Per the patient Procedure: The patient exercised on a Jared protocol for 6 minutes and 30 seconds achieving a peak heart rate of 176 bpm (93% predicted maximal heart rate) with a peak blood pressure 180/58 mmHg and a peak MET capacity of approximately 8.5 MET's. The baseline ECG demonstrated sinus rhythm with nonspecific ST changes. The peak exercise ECG demonstrated ST depressions that may denote ischemia. However specificity is reduced because of baseline changes. There were no cardiac dysrhythmias pretest, during exercise, or recovery. The functional capacity was considered average. The patient had no complaints of chest discomfort during exercise or recovery. The examination was discontinued secondary to target heart rate being achieved. Impression: 1. Technically adequate (percent predicted maximal heart rate greater than 85%) exercise tolerance test 2. Peak exercise ECG with ST changes that may denote ischemia. However specificity is reduced because of baseline abnormalities. Consider repeat testing with imaging or coronary CT angio for further evaluation. 3. There were no cardiac dysrhythmias during exercise or recovery This note was generated with [employer] software. It may contain incorrect words, spelling, and punctuation that were not noted in checking the note before signing.
== END | disposition home or self-care (01) ==
PROVIDERS: PCP Family Medicine; Referring Provider Internal Medicine Cardiovascular Disease; Visit Provider Internal Medicine Cardiovascular Disease
DX: R00.0 Tachycardia, unspecified (principal); R42 Dizziness and giddiness; R06.09 Other forms of dyspnea
CPT/HCPCS: 93017; 93306

== ENCOUNTER → 2023-08-15 | Outpatient (CLI) | payer OTHER, SELFPAY ==
--- NOTE | 2023-08-15 09:34 | NM_ITS ---
CLINICAL: 33-year-old male with history of abdominal pain. RADIONUCLIDE HEPATOBILIARY SCINTIGRAPHY COMPARISON: Abdominal ultrasound report 07/03/2023 FINDINGS: Following the intravenous administration of 5.3 mCi of 99m Tc Mebrofenin, hepatobiliary images reveal: 1. Relatively prompt and homogeneous radiopharmaceutical concentration is noted by a normal sized liver. No parenchymal defects are identified. 2. Gallbladder activity is identified at 30 minutes post radiopharmaceutical administration. 3. Small intestinal tract is observed at 15 minutes following tracer injection minutes. 4. Washout of the radiopharmaceutical by the hepatic parenchyma appears qualitatively normal. Cholecystokinin (0.02 ug/kg) was administered intravenously over a 30-minute period. The post CCK gallbladder ejection fraction calculated at 20 minutes following Cholecystokinin administration was noted to be 94.0 % (normal greater than 35%). During 30 minutes of post CCK imaging, there is no scintigraphic evidence of reflux of the radiotracer into the common hepatic duct or refilling of the gallbladder. PA/Hepatobilliary Img w/Pharm Int IMPRESSION: 1. NORMAL 99m Tc Mebrofenin hepatobiliary imaging examination with Cholecystokinin. A. A gallbladder ejection fraction calculated to be greater than 35% following the administration of Cholecystokinin makes the probability of functional hepatobiliary disease (gallbladder and/or sphincter of Oddi dyskinesia) and/or organic hepatobiliary disease (chronic acalculous cholecystitis and/or cystic duct syndrome) to be low. ([place] Mendez et al, Journal of Nuclear Medicine 32:1695, 1991). Electronically Signed: Braden Rosas DO at 23:31 EST ,
== END | disposition home or self-care (01) ==
LOC: NM 09:34
PROVIDERS: PCP Family Medicine; Referring Provider Family Medicine; Visit Provider Family Medicine
DX: R10.9 Unspecified abdominal pain (principal)
CPT/HCPCS: 78227; A9537; J2805

== ENCOUNTER 2023-09-23 20:02 | Emergency (ER) | payer OTHER, SELFPAY ==
[2023-09-23 20:03] VITALS: BP 180/91; PULSE 103; RESP 18; TEMP 36.6; O2SAT 100; BMI 28.8
--- NOTE | 2023-09-23 20:54 | EKG12_ITS ---
Test Reason : CP Blood Pressure : / mmHG Vent. Rate : 090 BPM Atrial Rate : 090 BPM P-R Int : 154 ms QRS Dur : 092 ms QT Int : 342 ms P-R-T Axes : 059 062 007 degrees QTc Int : 418 ms Normal sinus rhythm Nonspecific T wave abnormality Abnormal ECG Confirmed by DOM SANTOYO, ELVIS ([id number]), associate editor JOSE ANGEL MONCADA ([id number]) on 09/25/2023 6:22:04 AM Referred By: Confirmed By:ELVIS FERNANDES MD
[2023-09-23 21:02] VITALS: PULSE 85; RESP 22; O2SAT 99
--- NOTE | 2023-09-23 21:04 | EDS_ITS ---
HPI History of Present Illness Chief Complaint: Chest Pain Informant: patient Narrative Narrative: Patient is a 33-year-old male presenting with left-sided chest discomfort as well as cough. Patient states he started coughing yesterday. Denies any sputum production. This morning noticed that he was having some pain in the left side of his chest that is intermittent. He notes that sometimes if he pushes on the left side of his chest earlier in the day it would reproduce the pain but not currently. He notes that for about 2 months he is also been having this vague sensation in his left shoulder blade that almost feels like a pulled muscle. He has been having ongoing issues with dizziness is actually undergoing a cardiac evaluation with Dr. Briggs. Notes he had a recent stress test as well as echocardiogram and is due to have some type of CT scan next week. He does not correlate the dizziness with his chest discomfort. For about a month he had intermittent headaches which he thought may have are sinus in nature. No significant change in the symptoms. No other complaints or concerns reported at this time. Stress test from 08/07/2023 reviewed showed peak exercise EKG with ST changes that may denote ischemia however the specificity reduced because of baseline abnormalities. Consider repeat testing with imaging or coronary CT angio for further evaluation. No dysrhythmia reported. Echocardiogram from 08/04/2023 reviewed showed LVEF of 65% with right ventricular systolic pressure estimated be 40 mmHg. PFSH PFS Medical History Abnormal stress test Arm pain COVID-19 Dizziness Migraines Palpitations Tachycardia Home Medications multivitamin (Daily Multi-Vitamin tablet) 1 tab PO DAILY 09/23/23 [History Last Taken Unknown] Allergy/AdvReac Type Severity Reaction Status Date / Time No Known Allergies Allergy Verified 09/23/23 20:05 Family History Other CAD (coronary artery disease) Heart disease Hypertension Myocardial infarction Surgical History History of surgery on upper extremity Social History Smoking Status: Never smoker alcohol intake: current alcohol intake frequency: a few times a week substance use type: does not use caffeine: Yes Type: coffee Number of servings: 2 ROS ROS ED Constitutional Constitutional ED: Denies chills or fever(s) Eyes Eyes: Denies blurry vision ENT ENT ED: Reports sore throat Cardiovascular Cardiovascular: Reports chest pain Respiratory/Chest Respiratory/Chest: Reports cough; Denies dyspnea or sputum Gastrointestinal Gastrointestinal: Denies nausea or vomiting Musculoskeletal Musculoskeletal: Denies arthralgias or myalgias Integumentary Denies rash Neurologic Neurologic: Denies headache(s) EXAM Physical Exam Const Vital Signs: 09/23/23 20:03 09/23/23 21:02 09/23/23 21:17 Temperature 97.8 F Temperature Source Temporal Pulse Rate 103 H 85 Respiratory Rate 18 22 H Blood Pressure 180/91 H Blood Pressure Mean 120 Pulse Ox 100 99 Oxygen Delivery Method Room Air Room Air 09/23/23 22:00 Temperature Temperature Source Pulse Rate 78 Respiratory Rate 17 Blood Pressure 127/89 H Blood Pressure Mean 101 Pulse Ox 98 Oxygen Delivery Method Room Air Positive well nourished and well developed General Appearance ED: well developed and NAD HEENT Reports moist mucous membranes normocephalic Eyes PERRL Neck supple Chest Wall inspection of chest normal and palpation of chest normal Chest Narrative: No chest wall crepitus. Palpation does not reproduce the pain at this time Resp normal respiratory effort and clear to auscultation bilaterally Cardio regular rate, regular rhythm and no murmurs GI normal to inspection, nondistended, normoactive bowel sounds, soft to palpation and non-tender Extremity normal to inspection Neuro oriented x3 Sensorium / Orientation: awake and alert Motor Exam: Negative for general weakness Psych mental status grossly normal Skin no rashes or lesions noted and no wounds Heart Score History: Slightly/Non-Suspicious ECG: Nonspecific Repolarization Age: </= 45 years Risk Factors: No Risk Factors Troponin: </= Normal Limit Score: 1 MDM MDM MDM Narrative Medical decision making narrative: Patient is evaluated for cough that started yesterday as well as chest discomfort started today. He is currently undergoing cardiac workup because of these intermittent episodes of dizziness as well as shoulder pain and had an indeterminant stress test and is active scheduled to have what looks like CT coronary artery. Upon arrival patient is tachycardic and hypertensive however his vital signs significantly proved without any intervention. Is given a dose of Toradol for pain. EKG does not show any acute ischemic changes. Nonspecific T wave inversion in 3 and aVF as well as V4 and V5 however this is unchanged compared to his prior EKGs. He is overall low risk for PE D-dimer is obtained which is normal. He has a mild leukopenia and BMP normal. Given his acute cough will test for influenza as there is high community spread right now. He test positive for influenza B. Suspect this is the cause of his cough and the cough might be causing his chest pain. Chest x-ray 2 views reviewed by myself as well as radiology does not show any acute infiltrate. Patient we discharged home with symptomatic management of influenza with [id number] Motrin and Tylenol. Overall is quite well- appearing. Will continue to follow-up outpatient with cardiology but it does not require emergent consult or admission at this time. History & Record Review Additional record(s) reviewed:: Prior outpatient record (See HPI) Lab Data Attestation: I reviewed the patient's lab results. Labs: Laboratory Results - last 24 hr 09/23/23 21:00 WBC 4.3 L RBC 4.93 Hgb 14.0 Hct 40.4 MCV 81.9 MCH 28.4 MCHC 34.7 RDW Std Deviation 37.0 RDW Coeff of Patsy 12.4 Plt Count 164 MPV 9.6 Immature Gran % (Auto) 0.200 Neut % (Auto) 52.0 Lymph % (Auto) 26.3 [place] % (Auto) 19.4 H Eos % (Auto) 1.6 Baso % (Auto) 0.5 Absolute Neuts (auto) 2.3 Absolute Lymphs (auto) 1.14 Nucleated RBC % 0 D-Dimer Quant (PE/DVT) < 0.27 L Sodium 139 Potassium 3.7 Chloride 105 Carbon Dioxide 31.0 Anion Gap 3 L BUN 15 Creatinine 1.18 Estim Creat Clear Calc 103.04 Est GFR (MDRD) Af Amer 93 Est GFR (MDRD) Non-Af 76 BUN/Creatinine Ratio 12.7 Glucose 89 Calcium 9.0 Troponin I High Sens 28 Radiography Chest X-Ray - ED: 2 View, Read by ED Physician, Read by Radiologist and No Acute Disease Diagnostic Testing: Clinical Impression(s) from Imaging Studies Chest X-Ray 09/23/23 22:17 IMPRESSION: No acute cardiopulmonary abnormality. Electronically Signed: Joni Dave MD at 22:45 EDT , Rhythm Strip Rhythm Strip: Sinus Rhythm Rate: 90 Ectopy: None EKG Initial EKG: Attestation: I personally reviewed and interpreted this EKG as follows: Interpretation: Sinus Rhythm Comments: Normal sinus rhythm at a rate of 90 bpm Normal axis Normal intervals Normal ST segments T wave inversion in 3, aVF, V4 and V5 which is unchanged compared to prior EKG Discharge Plan Triage Chief Complaint: Chest Pain ED Provider: Jeanine Kirkpatrick Dx/Rx/DC Orders Clinical Impression: Influenza B, Chest wall pain Instructions: ED Chest Pain, Noncardiac, ED Influenza (Adult) Prescriptions: No Action multivitamin [Daily Multi-Vitamin] Tablet 1 tab PO DAILY Stand Alone Forms: Work / School Excuse Primary Care Provider: Marek Stanton Referrals: Marek Stanton MD [Primary Care Provider] - Activity Restrictions/Additional Instructions: Alternate ibuprofen and Tylenol drink plenty of fluids for flu. Continue to follow-up outpatient with cardiology for this ongoing dizziness. Disposition Disposition: Home, Self Care
[2023-09-23 21:21] LABS: Absolute Lymphocyte Count 1.14 X10^3/uL (0.83-4.51); Absolute Neutrophil Count 2.3 X10^3/uL (2.0-7.7); Basophil# 0.02 X10^3/uL; Basophil% 0.5 % (0-1); Eosinophil# 0.07 X10^3/uL; Eosinophils% 1.6 % (0-5); Hematocrit 40.4 % (40-54); Lymphocyte # 1.14 X10^3/ul (0.83-4.51); Lymphocyte % 26.3 % (19-41); Mean Corp Hgb Conc 34.7 g/dL (32-36); Mean Corpuscular Hgb 28.4 pg (27.0-32.0); Mean Corpuscular Volume 81.9 fL (80-94); Mean Platelet Vol. 9.6 fl (6.2-12.0); Monocyte# 0.84 X10^3/uL; Monocyte% 19.4 % (0-10); NRBC Flagged by Analyzer 0 % (0-5); Neutrophil # 2.25 X10^3/uL (2.7-7.7); Platelet Count 164 K/mm3 (150-450); RBC Distribution Width CV 12.4 % (11.6-14.6); Red Blood Count 4.93 M/mm3 (4.6-6.2); White Blood Count 4.3 K/mm3 (4.4-11.0)
[2023-09-23 21:40] LABS: Anion Gap 3 (5-15); BUN 15 mg/dL (7-18); BUN/Creat Ratio 12.7 RATIO (10-20); Chloride 105 mmol/L (98-107); Creatinine, Serum 1.18 mg/dL (0.70-1.30); D-Dimer Quantitative (DVT/PE) < 0.27 FEU/ug/m (0.27-0.49); EST Glomerular Filtration Rate 76 mL/min (>60); Est Glom Filt Rate - Afr Amer 93 mL/min (>60); Estimated Creatinine Clearance 103.04 ml/min; Glucose 89 mg/dL (74-106); Potassium 3.7 mmol/L (3.5-5.1); Sodium Level 139 mmol/L (136-145); Troponin-I HS (w/2H Reflex) 28 pg/mL (3.0-78.0)
[2023-09-23 22:00] VITALS: BP 127/89; PULSE 78; RESP 17; O2SAT 98
[2023-09-23] MEDS: Ketorolac 15 MG/ML Vial IV (22:09)
--- NOTE | 2023-09-23 22:17 | RAD_ITS ---
EXAM: XR CHEST, 2 VIEWS CLINICAL INDICATION: chest pain TECHNIQUE: Frontal and lateral views of the chest. COMPARISON: 08/05/2022. FINDINGS: LUNGS AND PLEURAL SPACES: Unremarkable. No consolidation or edema. No pneumothorax. No effusion. HEART: Unremarkable. Cardiac silhouette not enlarged.
[2023-09-23 23:00] VITALS: BP 129/76; PULSE 84; RESP 16; O2SAT 98
[2023-09-23 23:06] LABS: Reflex Troponin-HS? (from REC) Y
[2023-09-23 23:47] LABS: Troponin-I HS 27 pg/mL (3.0-78.0)
[2023-09-24] VITALS: BP 133/71; PULSE 80; RESP 16; TEMP 36.6; O2SAT 98
== END 2023-09-24 00:13 | disposition home or self-care (01) ==
PROVIDERS: Emergency Provider Emergency Medicine; PCP Family Medicine; Visit Provider Emergency Medicine
DX: J10.1 Influenza due to other identified influenza virus with other respiratory manifestations (principal); R07.89 Other chest pain
CPT/HCPCS: 71046; 80048; 84484; 85025; 85379; 87631; 93005; 99284

== ENCOUNTER → 2023-10-03 | Outpatient (CLI) | payer OTHER, SELFPAY ==
--- NOTE | 2023-10-03 12:48 | CT_ITS ---
STUDY: CT CHEST T ABDOMEN WITH CONTRAST REASON FOR EXAM: Male, 33 years old. ABN STRESS TEST. Cardiac over read examination. RADIATION DOSAGE (If Supplied By Facility): CTDIvol = ( 16.55 ) mGy, DLP = ( 1102.76 ) mGycm TECHNIQUE: Transaxial imaging was performed following intravenous administration of . Individualized dose optimization techniques were used for this CT. COMPARISON: No relevant priors. FINDINGS: CHEST The lungs are normal. There is no demonstrated pleural abnormality. Normal heart and pericardium. Normal mediastinum. Normal hilar regions. Normal unenhanced pulmonary arteries. Normal aorta arch and descending thoracic aorta. Normal osseous structures. There is no demonstrated abnormality of the visualized upper abdomen. CT/Limited Chest CT Cardiac Only IMPRESSION: Normal enhanced CT chest T abdomen examination. Electronically Signed: Frankie Morillo MD at 14:22 EDT ,
[2023-10-03 13:08] VITALS: BP 132/90; PULSE 60; RESP 18; O2SAT 98; BMI 28.7
[2023-10-03] MEDS: 0.9% Saline Lock 10 ML Syringe IV (13:10)
[2023-10-03] MEDS: Nitroglycerin SL (ED/IMG/CATH) 0.4 MG TABLET SL (13:20)
[2023-10-03 13:31] VITALS: BP 121/76; PULSE 71; RESP 18; O2SAT 99
--- NOTE | 2023-10-03 15:59 | CCTA.WCONT ---
CCTA w/Cont Coronary Arteries Date of Study:: 10/03/23 Abnormal stress test Coronary Calcium Scoring: High-resolution Computed Tomographic imaging of the chest was performed on [10/03/2023], with particular attention paid to the coronary arteries. Intravenous contrast agent was administered per protocol and images reconstructed and displayed. LEFT MAIN CORONARY ARTERY: Arises from the left coronary cusp and bifurcates into left anterior descending artery and left circumflex artery with no significant stenosis present [] LEFT ANTERIOR DESCENDING CORONARY ARTERY: Medium size vessel with no angiographically significant stenosis present [] LEFT CIRCUMFLEX CORONARY ARTERY: Nondominant vessel with no significant stenosis present [] RIGHT CORONARY ARTERY: Dominant right coronary artery with no significant stenosis present. [] CORONARY CALCIUM SCORE: Not performed Conclusion: Cardiac CT angiogram with no obvious obstructive coronary disease present. []
== END | disposition home or self-care (01) ==
PROVIDERS: PCP Family Medicine; Referring Provider Internal Medicine Cardiovascular Disease; Visit Provider Internal Medicine Cardiovascular Disease
DX: R94.39 Abnormal result of other cardiovascular function study (principal); R00.2 Palpitations; R00.0 Tachycardia, unspecified; R42 Dizziness and giddiness; R03.0 Elevated blood-pressure reading, without diagnosis of hypertension
CPT/HCPCS: 75574; 76380; Q9967

== ENCOUNTER 2024-01-08 15:35 | Observation (INO) | payer OTHER, SELFPAY ==
[2024-01-08] VITALS (13 sets, daily range): BP systolic 119–160; BP diastolic 71–98; PULSE 65–121; RESP 16–18; TEMP 36.4–37.6; O2SAT 92–100; BMI 28.1
--- NOTE | 2024-01-08 15:49 | CT_ITS ---
We are attempting to reach an attending provider to discuss findings. An addendum with communication details will be sent when the communication is complete. STUDY: CT ABDOMEN AND PELVIS WITH CONTRAST REASON FOR EXAM: Male, 33 years old. RLQ Pain, Appendicitis RADIATION DOSAGE (If Supplied By Facility): CTDIvol = ( 13.58 ) mGy, DLP = ( 969.44 ) mGycm TECHNIQUE: Transaxial images were obtained from the dome of the diaphragm to the symphysis pubis without oral contrast. ml of 100mL Isovue-370 contrast was administered. Sagittal and coronal images were reconstructed. Individualized dose optimization techniques were used for this CT. COMPARISON: None. FINDINGS: The visualized lung bases are unremarkable. The visualized portions of the heart are within normal limits. Normal liver. Normal gallbladder and extrahepatic biliary system. Normal spleen. Normal pancreas. Normal bilateral adrenal glands. Normal right kidney. Normal left kidney. Normal visualized stomach. Normal small intestine. Normal colon. Acute appendicitis is present with abnormal fluid distention of the appendix which is dilated up to 1.05 cm in diameter with hyperenhancement of the inner mucosa of the wall of the appendix and periappendiceal inflammation. A 2 mm appendicolith/stone is also present in the appendix lumen. No demonstrated appendix rupture or abscess or free air. Normal abdominal aorta. Normal inferior vena cava. Normal retroperitoneum. Normal urinary bladder. Normal abdominal wall. There are diffuse degenerative changes of the visualized lumbar spine. CT/Abdomen/Pelvis W IV Cont ONLY IMPRESSION: Acute appendicitis. 1. Acute appendicitis is present with abnormal fluid distention of the appendix which is dilated up to 1.05 cm in diameter with hyperenhancement of the inner mucosa of the wall of the appendix and periappendiceal inflammation. A 2 mm appendicolith/stone is also present in the appendix lumen. No demonstrated appendix rupture or abscess or free air. Electronically Signed: Ash Vincent MD at 16:42 EDT ,
--- NOTE | 2024-01-08 15:50 | EX.ED.DYSGE1 ---
HPI History of Present Illness Chief Complaint: Abd Pain Informant: patient Narrative Narrative: 33-year-old male presenting to the emergency room with right lower quadrant abdominal pain. Patient notes a periumbilical pain which started this morning when he woke up. Is since seems to have settled in the right lower quadrant. Patient states that he has not had any vomiting. He had a normal bowel movement this morning. He had eggs for breakfast. He denies any fever or urinary symptoms. No flank pain or testicular pain. He notes a prior orthopedic surgery. He currently takes no prescription medications. He notes he has been evaluated for pulmonary hypertension. [facility] Medical History Migraines Abnormal stress test ETOH abuse Elevated blood pressure reading in office without diagnosis of hypertension Palpitations Arm pain Tachycardia Dizziness COVID-19 Home Medications ?Medication ?Instructions ?Recorded ?Last Taken ?Type multivitamin (Daily Multi-Vitamin 1 tab PO DAILY 09/23/23 01/07/24 History tablet) albuterol sulfate 90 mcg/actuation 1 inh inhalation Q6H PRN shortness 01/08/24 Unknown History aerosol inhaler of breath or wheezing cetirizine 10 mg tablet (24Hour 10 mg PO DAILY PRN allergy symptoms 01/08/24 01/08/24 History Allergy) fluticasone propionate 50 1 spray intranasal DAILY PRN 01/08/24 01/08/24 History mcg/actuation nasal allergy symptoms spray,suspension (24 Hour Allergy Relief) pantoprazole 40 mg tablet,delayed 40 mg PO BID 01/08/24 Unknown History release sumatriptan succinate 50 mg tablet 50 mg PO DAILY PRN migraine 01/08/24 Unknown History headache Allergy/AdvReac Type Severity Reaction Status Date / Time No Known Allergies Allergy Verified 01/08/24 15:37 Family History Other CAD (coronary artery disease) Heart disease Hypertension Myocardial infarction Surgical History History of surgery on upper extremity Social History Smoking Status: Never smoker alcohol intake: current alcohol intake frequency: a few times a week substance use type: does not use caffeine: Yes Type: coffee Number of servings: 2 ROS ROS ED Constitutional Constitutional ED: Denies chills, fever(s), sweats or weight loss Eyes Eyes: Denies change in vision or diplopia ENT ENT ED: Denies ear pain, rhinorrhea or sore throat Cardiovascular Cardiovascular: Denies chest pain, orthopnea, palpitations or racing heartbeat Respiratory/Chest Respiratory/Chest: Denies cough, dyspnea or orthopnea Gastrointestinal Gastrointestinal: Reports abdominal pain; Denies constipation, diarrhea, nausea or vomiting Genitourinary Genitourinary ED: Reports other Details: Denies testicular pain ; Denies dysuria, hematuria or urinary frequency Musculoskeletal Musculoskeletal: Denies arthralgias, back pain or myalgias Integumentary Denies abscess or rash Neurologic Neurologic: Denies headache(s) or weakness Psychiatric Psychiatric: Denies anxiety, depression, suicidal ideation or suicidal thoughts Endocrine Endocrinology: Denies polydipsia, polyphagia or polyuria Allergic/Immunologic Allergic/Immunologic ED: Denies mouth swelling, tongue swelling or urticaria EXAM Physical Exam Const Vital Signs: 01/08/24 15:36 Temperature 98.3 F Temperature Source Temporal Pulse Rate 121 H Respiratory Rate 18 Blood Pressure 160/98 H Blood Pressure Mean 118 Pulse Ox 100 Oxygen Delivery Method Room Air Positive well nourished and well developed General Appearance ED: well developed HEENT Reports normocephalic, head/scalp atraumatic and moist mucous membranes Eyes PERRL and EOMs intact bilaterally Neck no lymphadenopathy, supple and no JVD Resp normal respiratory effort and clear to auscultation bilaterally Cardio regular rate, regular rhythm and no murmurs GI Auscultation: hypoactive bowel sounds Palpation: soft, tender RLQ, guarding RLQ and rebound tenderness present McBurney's point Back/Spine no CVA tenderness and normal ROM Extremity normal to inspection General Extremety ED: Negative for edema General Extremity: Negative for edema Neuro oriented x3 and CN's II-XII intact bilaterally Sensorium / Orientation: alert Motor Exam: strength 5/5 throughout Psych mental status grossly normal Mood & Affect: Negative for depressed or tearful Skin no rashes or lesions noted and no wounds MDM MDM MDM Narrative Medical decision making narrative: Differential diagnosis includes but not limited to epiploic appendagitis, ureterolithiasis, mesenteric adenitis, colitis, bowel obstruction pancreatitis, appendicitis Patient received IV fluids morphine Zofran. White count returns elevated at 17 with 80.3 neutrophils. BMP shows a glucose of 119. Total bilirubin 1.9 with a direct bilirubin 0.34. Lipase of 33. CT of the abdomen pelvis done on my review shows appendicitis. I ordered Zosyn and spoke with on-call surgeon Dr. Galvez. Patient and his father were updated. Plan is to take the patient to the operating History & Record Review Discussion w/independent historian: Patient and Family Lab Data Attestation: I reviewed the patient's lab results. Labs: Laboratory Results - last 24 hr 01/08/24 15:45 WBC 17.0 H RBC 5.44 Hgb 15.2 Hct 44.3 MCV 81.4 MCH 27.9 MCHC 34.3 RDW Std Deviation 37.0 RDW Coeff of Patsy 12.6 Plt Count 230 MPV 9.4 Immature Gran % (Auto) 0.400 Neut % (Auto) 80.3 H Lymph % (Auto) 11.0 L [place] % (Auto) 7.7 Eos % (Auto) 0.4 Baso % (Auto) 0.2 Absolute Neuts (auto) 13.6 H Absolute Lymphs (auto) 1.86 Nucleated RBC % 0 Sodium 133 L Potassium 3.5 Chloride 106 Carbon Dioxide 26.0 Anion Gap 1 L BUN 17 Creatinine 1.16 Estim Creat Clear Calc 103.62 Est GFR (MDRD) Af Amer 94 Est GFR (MDRD) Non-Af 78 BUN/Creatinine Ratio 14.7 Glucose 119 H Calcium 9.2 Total Bilirubin 1.90 H Direct Bilirubin 0.34 H AST 22 ALT 25 Alkaline Phosphatase 50 Total Protein 7.6 Albumin 4.4 Globulin 3.2 Lipase 33 Management Discussion w/another healthcare provider: Typing Office Worker (Dr. Cline (Surgery)) Discharge Plan Dx/Rx/DC Orders Clinical Impression: Acute appendicitis, Abdominal pain, acute Disposition Disposition: Acute Care Hospital [facility]
[2024-01-08] MEDS: Morphine 4 MG/ML Syringe IV (15:55)
[2024-01-08] MEDS: 0.9% Normal Saline (1000mL) 1,000 ML 999 ML IV (15:55)
[2024-01-08] MEDS: Ondansetron 4 MG/2 ML Vial IV (15:55)
[2024-01-08 15:57] LABS: Absolute Lymphocyte Count 1.86 X10^3/uL (0.83-4.51); Absolute Neutrophil Count 13.6 X10^3/uL (2.0-7.7); Basophil# 0.04 X10^3/uL; Basophil% 0.2 % (0-1); Eosinophil# 0.06 X10^3/uL; Eosinophils% 0.4 % (0-5); Hematocrit 44.3 % (40-54); Hemoglobin 15.2 g/dL (13.0-16.5); Lymphocyte # 1.86 X10^3/ul (0.83-4.51); Mean Corp Hgb Conc 34.3 g/dL (32-36); Mean Corpuscular Hgb 27.9 pg (27.0-32.0); Mean Corpuscular Volume 81.4 fL (80-94); Mean Platelet Vol. 9.4 fl (6.2-12.0); Monocyte# 1.31 X10^3/uL; Monocyte% 7.7 % (0-10); NRBC Flagged by Analyzer 0 % (0-5); Neutrophil # 13.61 X10^3/uL (2.7-7.7); Neutrophil % 80.3 % (47-70); Platelet Count 230 K/mm3 (150-450); RBC Distribution Width CV 12.6 % (11.6-14.6); Red Blood Count 5.44 M/mm3 (4.6-6.2)
[2024-01-08 16:11] LABS: AST(SGOT) 22 U/L (15-37); Alanine Aminotransfer ALT/SGPT 25 U/L (16-61); Albumin, Serum 4.4 g/dL (3.2-5.0); Alkaline Phosphatase 50 U/L (45-117); Anion Gap 1 (5-15); BUN 17 mg/dL (7-18); BUN/Creat Ratio 14.7 RATIO (10-20); Bilirubin, Direct 0.34 mg/dL (0.00-0.30); Calcium,Total 9.2 mg/dL (8.5-10.1); Chloride 106 mmol/L (98-107); Creatinine, Serum 1.16 mg/dL (0.70-1.30); EST Glomerular Filtration Rate 78 mL/min (>60); Est Glom Filt Rate - Afr Amer 94 mL/min (>60); Estimated Creatinine Clearance 103.62 ml/min; Globulin 3.2 g/dL (2.2-4.2); Glucose 119 mg/dL (74-106); Lipase 33 U/L (13-75); Potassium 3.5 mmol/L (3.5-5.1); Protein, Total 7.6 g/dL (6.4-8.2); Sodium Level 133 mmol/L (136-145)
--- NOTE | 2024-01-08 16:34 | PCM.HP.STD ---
HPI - General General Date of Service: 01/08/24 HPI Narrative MONICA FLORIAN, is a 33 M who presents with generalized abdominal pain which moved to the right lower quadrant around 11 AM this morning. Patient denies any nausea or vomiting did actually eat lunch at noon. However the pain persisted. Patient CT abdomen pelvis showed acute appendicitis white blood count of 17. Patient received Zosyn 4.5 g IV x 1 in the ER. Patient denies any previous abdominal surgeries. Patient was worked up for dizziness earlier this year and had an echo as well as a stress test which showed mild pulmonary hypertension at 40 mmHg. Otherwise ejection fraction 65%. Patient does drink 4-5 drinks weekly usually more on the weekends. [facility] Medical History Migraines Abnormal stress test ETOH abuse Elevated blood pressure reading in office without diagnosis of hypertension Palpitations Arm pain Tachycardia Dizziness COVID-19 Home Medications ?Medication ?Instructions ?Recorded ?Last Taken ?Type multivitamin (Daily Multi-Vitamin 1 tab PO DAILY 09/23/23 01/07/24 History tablet) albuterol sulfate 90 mcg/actuation 1 inh inhalation Q6H PRN shortness 01/08/24 Unknown History aerosol inhaler of breath or wheezing cetirizine 10 mg tablet (24Hour 10 mg PO DAILY PRN allergy symptoms 01/08/24 01/08/24 History Allergy) fluticasone propionate 50 1 spray intranasal DAILY PRN 01/08/24 01/08/24 History mcg/actuation nasal allergy symptoms spray,suspension (24 Hour Allergy Relief) pantoprazole 40 mg tablet,delayed 40 mg PO BID 01/08/24 Unknown History release sumatriptan succinate 50 mg tablet 50 mg PO DAILY PRN migraine 01/08/24 Unknown History headache Allergy/AdvReac Type Severity Reaction Status Date / Time No Known Allergies Allergy Verified 01/08/24 15:37 Family History Other CAD (coronary artery disease) Heart disease Hypertension Myocardial infarction Surgical History History of surgery on upper extremity Social History Smoking Status: Never smoker alcohol intake: current alcohol intake frequency: a few times a week substance use type: does not use caffeine: Yes Type: coffee Number of servings: 2 Vital Signs Vital Signs Vital Signs: 01/08/24 15:36 Temperature 98.3 F Temperature Source Temporal Pulse Rate 121 H Respiratory Rate 18 Blood Pressure 160/98 H Blood Pressure Mean 118 Pulse Ox 100 Oxygen Delivery Method Room Air Weight Weight: 196 lb 3.382 oz Body Mass Index (BMI) 28.1 Physical Exam Const alert, oriented x3 and no apparent distress HEENT normocephalic and head/scalp atraumatic Resp normal respiratory effort Cardio regular rate GI soft to palpation; Negative for non-distended Palpation: tender RLQ; Negative for guarding Extremity no clubbing, cyanosis or edema Neuro CN's II-XII intact bilaterally Psych mental status grossly normal Results Lab / Micro Data 01/08/24 15:45 01/08/24 15:45 Labs: Laboratory Results - last 24 hr 01/08/24 15:45: WBC 17.0 H, RBC 5.44, Hgb 15.2, Hct 44.3, MCV 81.4, MCH 27.9, MCHC 34.3, RDW Std Deviation 37.0, RDW Coeff of Patsy 12.6, Plt Count 230, MPV 9.4, Immature Gran % (Auto) 0.400, Neut % (Auto) 80.3 H, Lymph % (Auto) 11.0 L, Davidson % (Auto) 7.7, Eos % (Auto) 0.4, Baso % (Auto) 0.2, Absolute Neuts (auto) 13.6 H, Absolute Lymphs (auto) 1.86, Nucleated RBC % 0, Sodium 133 L, Potassium 3.5, Chloride 106, Carbon Dioxide 26.0, Anion Gap 1 L, BUN 17, Creatinine 1.16, Estim Creat Clear Calc 103.62, Est GFR (MDRD) Af Amer 94, Est GFR (MDRD) Non-Af 78, BUN/Creatinine Ratio 14.7, Glucose 119 H, Calcium 9.2, Total Bilirubin 1.90 H, Direct Bilirubin 0.34 H, AST 22, ALT 25, Alkaline Phosphatase 50, Total Protein 7.6, Albumin 4.4, Globulin 3.2, Lipase 33 Assessment & Plan Assessment/Plan (1) Acute appendicitis: PLAN: Plan 1. Discussed procedure laparoscopic appendectomy, possible open along with the risk but not limited to bleeding, infection/abscess, injury to another organ (small bowel, colon, etc.), adhesion, hernia at incision sites, and anesthesia. Patient and his dad had no further question this time. Lyla Cline M.D. Pager: [phone] [facility] [address] [place] [address], [address] [place] [address] Office: [phone]
--- NOTE | 2024-01-08 16:45 | NURSING ---
SURGERY THEN MED SURG ROBOTHAM APPENDICITIS
[2024-01-08] MEDS: Piperacil/Tazobactam 4.5 GM in 0.9% Normal Saline (100mL MB+) 100 ML IV (16:56)
[2024-01-08] MEDS: 0.9% Normal Saline (1000mL) 1,000 ML 125 ML IV (16:56)
--- NOTE | 2024-01-08 18:07 | PCM.PRE.AN2 ---
ASA Classification* ASA Classification ASA Classification: 3 and E Assessment & Plan Anesthesia* Anesthesia Assessment Anesthesia Assessment: Discussed sedation and/or anesthesia options, risks, benefits, and alternatives with patient/parents/legal guardian/POA. Questions invited. The patient/parents/legal guardian/POA seems to understand and agrees to proceed with anesthesia plan. Reviewed the physical assessment, medical history, allergy history and patient home medications list prior to surgery/procedure/anesthetic and documented any changes. Performed airway and anesthesia risk assessments. Anesthesia Type Anesthesia Type: General (see written pre anesthesia record for full assessment) Anesthesia Focused Assessment* Temperature: 99.7 F Pulse Rate: 86 Blood Pressure: 144/81 Respiratory Rate: 16 Pulse Ox: 98 Airway Assessment Mouth opens: >3 cm Mallampati Score: II Focused Labs Anesthesia Preop lab: CBC WBC 17.0 K/mm3 (4.4-11.0) H 01/08/24 15:45 RBC 5.44 M/mm3 (4.6-6.2) 01/08/24 15:45 Hgb 15.2 g/dL (13.0-16.5) 01/08/24 15:45 Hct 44.3 % (40-54) 01/08/24 15:45 Plt Count 230 K/mm3 (150-450) 01/08/24 15:45 CHEMISTRY Potassium 3.5 mmol/L (3.5-5.1) 01/08/24 15:45 Sodium 133 mmol/L (136-145) L 01/08/24 15:45 BUN 17 mg/dL (7-18) 01/08/24 15:45 Creatinine 1.16 mg/dL (0.70-1.30) 01/08/24 15:45 Glucose 119 mg/dL (74-106) H 01/08/24 15:45 TSH 1.34 uIU/mL (0.358-3.74) 07/29/23 12:00 COAG Pre-Assessment Diagnosis/Proposed Procedure Planned Operative Procedure(s): lap dallas Anesthesia History 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 When Was Last Pacemaker Check QUESTION #4 FULL TEXT: You/Your Family Experience fever (hyperthermia) with Anesthesia Last Oral Intake Last Oral intake: Last Oral Intake NPO since 12:30 01/08/24 16:57 Meds taken in AM with sips of water? 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 Has anyone observed you stop No 01/08/24 16:57 breathing during sleep? STOP Results Negative 01/08/24 16:57 QUESTION #5 FULL TEXT : Do you snore loudly (louder than talking or can be heard through closed doors)? 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 Specify any problems Hx of Preganancy in last 3 Months Nurse Filling Out Transfusion & Questions: Date: Time: Patient unable to answer at this time (ie. confused, unrespo /Reproduction History /Reproductive History - button cutting machine operator: /Reproductive Hx- button cutting machine operator Hx Now No 01/08/24 16:57 Gestational Age (in weeks): EDC: Hx Hx Para Hx Section SAB Active Medications Active Medications: Current Medications Generic Name Dose Route Start Last Admin Trade Name Freq PRN Reason Stop Dose Admin Sodium Chloride 1,000 mls @ 125 mls/hr 01/08/24 15:50 01/08/24 17:05 IV 0 mls/hr .Q8H ESTRELLA Infusion Lactated Ringer's 1,000 mls @ 15 mls/hr 01/08/24 17:45 IV .Q48H ESTRELLA Lactated Ringer's 1,000 mls @ 15 mls/hr 01/08/24 17:45 IV .Q48H ESTRELLA PFSH Medical History Migraines Abnormal stress test ETOH abuse Elevated blood pressure reading in office without diagnosis of hypertension Palpitations Arm pain Tachycardia Dizziness COVID-19 Home Medications ?Medication ?Instructions ?Recorded ?Last Taken ?Type multivitamin (Daily Multi-Vitamin 1 tab PO DAILY 09/23/23 01/07/24 History tablet) albuterol sulfate 90 mcg/actuation 1 inh inhalation Q6H PRN shortness 01/08/24 Unknown History aerosol inhaler of breath or wheezing cetirizine 10 mg tablet (24Hour 10 mg PO DAILY PRN allergy symptoms 01/08/24 01/08/24 History Allergy) fluticasone propionate 50 1 spray intranasal DAILY PRN 01/08/24 01/08/24 History mcg/actuation nasal allergy symptoms spray,suspension (24 Hour Allergy Relief) oxycodone-acetaminophen 5 mg-325 1 - 2 tab PO Q6H PRN pain 3 days 01/08/24 Unknown Rx mg tablet #14 tabs pantoprazole 40 mg tablet,delayed 40 mg PO BID 01/08/24 Unknown History release sumatriptan succinate 50 mg tablet 50 mg PO DAILY PRN migraine 01/08/24 Unknown History headache Allergy/AdvReac Type Severity Reaction Status Date / Time No Known Allergies Allergy Verified 01/08/24 17:21 Family History Other CAD (coronary artery disease) Heart disease Hypertension Myocardial infarction Surgical History History of surgery on upper extremity Social History Smoking Status: Never smoker alcohol intake: current alcohol intake frequency: a few times a week substance use type: does not use caffeine: Yes Type: coffee Number of servings: 2 Review of Systems (Anesthesia) ROS Narrative System reviewed and no additional complaints, except as documented.
--- NOTE | 2024-01-08 18:20 | APP_PTH ---
PATIENT: MONICA FLORIAN LOC: [facility] U#:[id number] AGE/SX: 33/M ROOM: [facility]311 RE01/08/[address]: Dr. Lyla Cline MD : 1990 BED: 1 DIS: 01/09/2024 SPEC #: [id number] RECD: 01/09/24 07:50 STATUS: MIKA ALMAZAN #: [id number] OPAL: 01/08/24 18:[address]: Lyla Cline DEPT: SURGICAL PATHOLOGY RECD BY: Emiliana Jade ENTERED: 01/09/24 09:38 SP TYPE: APPENDIX OTHR DR: Dr. Marek Stanton MD Tissues: Appendix, NOS Procedures: Surgery Specimen Level III HEADER OPERATION: Laparoscopic, appendectomy PRE-OP DIAGNOSIS: Acute appendicitis TISSUE SUBMITTED: Appendix MICROSCOPIC DIAGNOSIS Appendix, appendectomy: Acute appendicitis. Acute serositis. AM/ 01/12/2024 MICROSCOPIC DESCRIPTION Slides are reviewed. GROSS DESCRIPTION Received in fixative is one container labeled with the patient's name and designated appendix. The specimen consists of lateral C shaped appendix measuring 6.0 cm in length and up to 1.0 cm in diameter. The attached periappendiceal adipose tissue measures up to 1.5 cm in width. The serosa is congested. No obvious perforation is identified. The lumen does not contain any fecal material. No fecalith is identified. Carding Utility Tender sections are submitted in one cassette. / SJ: 01/09/2024 :5 CPT: 02500
[2024-01-08] MEDS: Bupivacaine Mpf 0.5% 30 ML VIAL (19:46)
--- NOTE | 2024-01-08 19:51 | PCM.OPRPT ---
Report of Operation Date of Procedure: 01/08/24 Pre-Operative Diagnosis: Acute appendicitis Post-Operative Diagnosis: Same Surgery/Procedure Performed:: Laparoscopic appendectomy Surgeon: Lyla Cline Type of Anesthesia: General/Supplemental Anesthesiologist: Fran Martell Special Medications: Zosyn 4.5 g IV x 1 for acute appendicitis Specimen's removed: Appendix Estimated Blood Loss (mL): < 10 cc Description of Procedure: indications: 33-year-old male presented to the ER with new right lower quadrant pain this morning. On workup he was found to have acute appendicitis on CT and a leukocytosis of 17. Patient was started on antibiotics in the ER for acute appendicitis-Zosyn 4.45 g IV x 1 Description of the procedure: The patient was placed on operating table in supine position. General anesthesia was induced. A timeout was completed verifying correct patient, procedure, position and special equipment prior to beginning procedure. Abdomen was prepped and draped in usual sterile fashion. Incision was made in the natural skin line below the umbilicus with a 15 blade scalpel. The fascia was elevated and incised. Entry into the peritoneum was confirmed visually and no bowel was noted in the vicinity of the incision. The Jarvis trocar was placed under direct vision. Abdomen insufflated with a pressure of 12-15 mmHg. Patient tolerated insertion well. The scope was inserted and the abdomen inspected. No injuries from initial trocar placement were noted. Minimal amount of fluid was seen in the right lower quadrant. An direct visualization 2 -5 mm trocars were placed one above the symphysis pubis and below the hairline and one in the left lower quadrant lateral to the rectus muscle. Care is taken to avoid injury to the bladder and inferior epigastric vessels. The table was placed in Trendelenburg position with the right side elevated. The appendix was grasped with atraumatic grasper and elevated. It was noted to be inflamed. A window was developed in the mesoappendix at the point between the base of the appendix and the cecum. An endoscopic 45 mm linear cutting stapler blue load was then used to divide and staple the base of the appendix. Enseal was used to divide the mesoappendix The appendix was withdrawn into the Jarvis trocar after being placed endoscopically retrieval bag. Appendix was sent to pathology. The appendiceal stump was then irrigated and hemostasis was assured. Fluid was suctioned no other pathology was identified. Secondary trochars were removed under direct visualization. No bleeding was noted trocar sites. The laparoscope withdrawn and the umbilical trocar removed. The abdomen was allowed to collapse. Local anesthesia of 16 mL of 0.5% Marcaine was used at the incision sites. The umbilical trocar site was closed with the [id number] 0 Vicryl suture. The skin was closed using sutures of 4-0 Monocryl and Steri-Strips. The patient was extubated. The patient tolerated the procedure well and was taken to the postanesthesia care unit in satisfactory condition. Complications none
--- NOTE | 2024-01-08 19:54 | DCINST_ITS ---
Discharge Instructions Diet Discharge Diet: Light diet - advance as tolerated Activity Discharge Activity: May Not Drive (while taking narcotic pain medications.) May shower in (days): 1 Lifting Restrictions: no lifting >20 lbs x 2 wks, no strenuous exercise for 4 wks Dressing / Incision Call your doctor if your incision/area has: Continuous Slow Oozing, Sudden Increased Bleeding, Increased Pain/ Swelling, Increased Redness, Foul Smelling Discharge and Swelling at the incision site Call your doctor if you observe: Fever of 101 or Higher Remove Dressing in: 2 days Cleanse incision/area with: Soap & Water Additional Dressing/Incision Instructions:: Steri-Strips will fall off in 7 to 10 days, if they do not fall off okay to remove after 10 days. Follow Up Care Please Follow Up With: Lyla Cline MD When: Call the office for a follow-up appointment 2 weeks; after 5 PM and on the weekends call [phone] with any concerns. Test Results: Test results from this visit will be discussed in further detail at your follow- up appointment, if applicable. Discharge Plan Admission Admit Date/Time: 01/08/24 16:58 Attending Provider: Lyla Cline Primary Care Provider: Marek Stanton Discharge Orders/Prescriptions Prescriptions: New oxycodone-acetaminophen 5-325 mg tablet 1 - 2 tab PO Q6H PRN (Reason: pain) 3 Days Qty: 14 0RF Continued multivitamin [Daily Multi-Vitamin] Tablet 1 tab PO DAILY sumatriptan succinate 50 mg tablet 50 mg PO DAILY PRN (Reason: migraine headache) pantoprazole 40 mg tablet,delayed release (DR/EC) 40 mg PO BID Patient Comments: PT HASNT STARTED MED YET albuterol sulfate 90 mcg/actuation HFA aerosol inhaler 1 inh INHALATION Q6H PRN (Reason: shortness of breath or wheezing) cetirizine [24Hour Allergy] 10 mg tablet 10 mg PO DAILY PRN (Reason: allergy symptoms) fluticasone propionate [24 Hour Allergy Relief] 50 mcg/actuation spray,suspension 1 spray intranasal DAILY PRN (Reason: allergy symptoms) Referrals / Follow Up: Marek Stanton MD [Primary Care Provider] - Disposition Disposition (needs filled in before D/C Order can be placed): Home, Self Care
--- NOTE | 2024-01-08 20:08 | PCM.POST.ANE ---
Anesthesia: Postop Eval I Current Vital Signs Temperature: 98.2 F Pulse Rate: 89 Blood Pressure: 127/72 Respiratory Rate: 17 Pulse Ox: 93 Assessment Airway patent: Yes Spontaneous unlabored respirations: Yes nausea: No Vomiting: No Anesthesia Complication: No Fluid Hydration Crystalloid volume administer (ml): 650 Total IV fluid infused: 650 Progress Note Anesthesia document: Postop Eval 1 completed: Yes
--- NOTE | 2024-01-08 20:11 | POSTOPAN2_ITS ---
Anesthesia Postop Eval I Sum Postop Eval Completion status Anesthesia document: Postop Eval 1 completed: Yes Anesthesia Postop Eval I Summary Anesthesia Postop Eval I Summary: Anesthesia Postop Eval I: Assessment Summary Airway patent Yes 01/08/24 20:09 [email or web address] Spontaneous unlabored Yes 01/08/24 20:09 [email or web address] respirations Mental status nausea No 01/08/24 20:09 [email or web address] [email or web address] Vomiting No 01/08/24 20:09 [email or web address] Anesthesia Postop Eval I: Fluid Summary Crystalloid volume administer 650 01/08/24 20:09 [email or web address] (ml) Colloids volume administered ( ml) Blood Product volume administered (ml) Total IV fluid infused 650 01/08/24 20:09 [email or web address] Anesthesia Postop Eval I: Summary Notes Anesthesia Complication No 01/08/24 20:09 FISHER [email or web address] Anesthesia Complication Comment: Post-operative progress note Anesthesia: Postop Eval II Evaluation Mental status: Awake and Calm Pain Level: 2 nausea: No Vomiting: No
--- NOTE | 2024-01-08 20:11 | PCM.POSTANE2 ---
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 Spontaneous unlabored Yes 01/08/24 20:09 AGRICULTURAL SERVICE WORKER.[email or web address] respirations Mental status nausea No 01/08/24 20:09 AGRICULTURAL SERVICE WORKER.[email or web address] Vomiting No 01/08/24 20:09 AGRICULTURAL SERVICE WORKER.[email or web address] Anesthesia Postop Eval I: Fluid Summary Crystalloid volume administer 650 01/08/24 20:09 AGRICULTURAL SERVICE WORKER.JCOTE (ml) Colloids volume administered ( ml) Blood Product volume administered (ml) Total IV fluid infused 650 01/08/24 20:09 AGRICULTURAL SERVICE WORKER.[email or web address] Anesthesia Postop Eval I: Summary Notes Anesthesia Complication No 01/08/24 20:09 AGRICULTURAL SERVICE WORKER.[email or web address] Anesthesia Complication Comment: Post-operative progress note Anesthesia: Postop Eval II Evaluation Mental status: Awake and Calm Pain Level: 2 nausea: No Vomiting: No
[2024-01-08] MEDS: Lactated Ringers 1,000 ML 15 ML IV (20:18)
[2024-01-08] MEDS: 0.9% Normal Saline (1000mL) 1,000 ML 120 ML IV (21:19)
[2024-01-08] MEDS: Ketorolac 15 MG/ML Vial IV (21:20)
[2024-01-08] MEDS: 0.9% Saline Lock 10 ML Syringe IV (21:20)
[2024-01-08] MEDS: Pantoprazole Sodium 40 MG in 0.9% Normal Saline (100mL MB+) 100 ML 330 MG IV (22:41)
[2024-01-09 00:29] VITALS: BP 123/72; PULSE 62; RESP 18; TEMP 36.7; O2SAT 98
[2024-01-09 00:39] VITALS: O2SAT 97
[2024-01-09] MEDS: oxyCODONE 5 MG Tablet PO ×2 (00:40→05:24)
[2024-01-09 05:17] VITALS: BP 122/78; PULSE 64; RESP 18; TEMP 36.5; O2SAT 99
[2024-01-09] MEDS: 0.9% Normal Saline (1000mL) 1,000 ML 120 ML IV (05:23)
[2024-01-09] MEDS: Acetaminophen 325 MG Tablet 650 MG PO (05:24)
--- NOTE | 2024-01-09 08:21 | PCM.PN.SRG ---
Subjective Subjective Tolerated clears-- ordered breakfast this morning. Pain controlled Objective Data Objective Data Vital Signs: Vital Signs Temp Pulse Resp BP Pulse Ox O2 Del Method O2 Flow Rate 97.7 F L 64 18 122/78 H 99 Room Air 2 01/09/24 05:17 01/09/24 05:17 01/09/24 05:17 01/09/24 05:17 01/09/24 05:17 01/09/24 05:17 01/09/24 00:29 Oxygen Flow Rate (L/min) 2 Oxygen Delivery Method Room Air Weight: 196 lb 3.382 oz Body Mass Index (BMI) 28.1 Intake & Output: Intake and Output for Last 24 Hours 01/07/24 01/08/24 01/09/24 23:59 23:59 23:59 Intake Total 2244.00 / 2244.00 1368 / 1368 Balance 2244.00 / 2244.00 1368 / 1368 Lab / Micro Data 01/08/24 15:45 01/08/24 15:45 Labs: Laboratory Results - last 24 hr 01/08/24 15:45: WBC 17.0 H, RBC 5.44, Hgb 15.2, Hct 44.3, MCV 81.4, MCH 27.9, MCHC 34.3, RDW Std Deviation 37.0, RDW Coeff of Patsy 12.6, Plt Count 230, MPV 9.4, Immature Gran % (Auto) 0.400, Neut % (Auto) 80.3 H, Lymph % (Auto) 11.0 L, Johnson % (Auto) 7.7, Eos % (Auto) 0.4, Baso % (Auto) 0.2, Absolute Neuts (auto) 13.6 H, Absolute Lymphs (auto) 1.86, Nucleated RBC % 0, Sodium 133 L, Potassium 3.5, Chloride 106, Carbon Dioxide 26.0, Anion Gap 1 L, BUN 17, Creatinine 1.16, Estim Creat Clear Calc 103.62, Est GFR (MDRD) Af Amer 94, Est GFR (MDRD) Non-Af 78, BUN/Creatinine Ratio 14.7, Glucose 119 H, Calcium 9.2, Total Bilirubin 1.90 H, Direct Bilirubin 0.34 H, AST 22, ALT 25, Alkaline Phosphatase 50, Total Protein 7.6, Albumin 4.4, Globulin 3.2, Lipase 33 Radiography Diagnostic Testing: Radiology Impression Abdomen/Pelvis CT 01/08/24 15:49 IMPRESSION: Acute appendicitis. 1. Acute appendicitis is present with abnormal fluid distention of the appendix which is dilated up to 1.05 cm in diameter with hyperenhancement of the inner mucosa of the wall of the appendix and periappendiceal inflammation. A 2 mm appendicolith/stone is also present in the appendix lumen. No demonstrated appendix rupture or abscess or free air. Electronically Signed: Ash Vincent MD at 16:42 EDT , ADDENDUM: 01/08/24 1703 IMPRESSION: Acute appendicitis. 1. Acute appendicitis is present with abnormal fluid distention of the appendix which is dilated up to 1.05 cm in diameter with hyperenhancement of the inner mucosa of the wall of the appendix and periappendiceal inflammation. A 2 mm appendicolith/stone is also present in the appendix lumen. No demonstrated appendix rupture or abscess or free air. N.B. : The above Results were Read Back by Ash Vincent MD to Nuha Dave RN, and understanding confirmed on 01/08/2024 16:56:23 (ET). Electronically Signed: Ash Vincent MD at 16:42 EDT , Physical Exam Resp normal respiratory effort Cardio regular rate GI GI Narrative: Abdomen: Soft, nondistended, tender near incision's dressed clean dry and intact, no peritoneal signs Assessment & Plan Assessment/Plan (1) S/P laparoscopic appendectomy: PLAN: Plan Patient's incisions dressed clean dry and intact. Pain controlled, ambulating. Patient is able to tolerate regular diet okay to DC home. Patient agreeable plan. Lyla Cline M.D. Pager: [phone] [facility] [address] [place] [address], Outpatient [place], [address] [place] [address] Office: [phone]
[2024-01-09 09:40] VITALS: BP 126/80; PULSE 72; RESP 16; TEMP 36.8; O2SAT 100
== END 2024-01-09 09:53 | disposition home or self-care (01) ==
LOC: ED 16:52 → SDC 16:52 → ACINP 16:53 → SDC 18:39 → MS3 18:39
PROVIDERS: Admitting Provider Surgery; Emergency Provider Emergency Medicine; PCP Family Medicine; Visit Provider Surgery
PROC: 0DTJ4ZZ Resection of Appendix, Percutaneous Endoscopic Approach (ICD-10-PCS; CPT 44970; principal; 2024-01-08 18:00)
DX: K35.80 Unspecified acute appendicitis (principal); Z86.16 Personal history of COVID-19; F10.10 Alcohol abuse, uncomplicated
CPT/HCPCS: 44970; 00840; 74177; 80048; 80076; 83690; 85025; 88304; 94668; 96361; 96365; 96375; 99221; 99252; 99284; J7030; J7120; Q9967; A4216; C1760; G0378; G0463; J2405

== ENCOUNTER → 2024-04-29 | Outpatient (CLI) | payer OTHER, SELFPAY ==
[2024-04-29 11:11] LABS: ALB/GLOB Ratio 1.4 RATIO (0.9-2.4); AST(SGOT) 15 U/L (15-37); Alanine Aminotransfer ALT/SGPT 24 U/L (16-61); Albumin, Serum 4.3 g/dL (3.2-5.0); Alkaline Phosphatase 50 U/L (45-117); Anion Gap 6 (5-15); BUN 16 mg/dL (7-18); BUN/Creat Ratio 14.7 RATIO (10-20); Calcium,Total 9.4 mg/dL (8.5-10.1); Chloride 106 mmol/L (98-107); Cholesterol 189 mg/dL (200); Creatinine, Serum 1.09 mg/dL (0.70-1.30); EST Glomerular Filtration Rate 83 mL/min (>60); Est Glom Filt Rate - Afr Amer 101 mL/min (>60); Glucose 92 mg/dL (74-106); High Density Lipoprotein 44 mg/dL; Potassium 3.8 mmol/L (3.5-5.1); Protein, Total 7.3 g/dL (6.4-8.2); Sodium Level 138 mmol/L (136-145); Triglycerides 157 mg/dL; Very Low Density Lipoprotein 31 mg/dL (5-40)
== END | disposition home or self-care (01) ==
LOC: MFPLAB 08:34
PROVIDERS: PCP Family Medicine; Visit Provider Family Medicine
DX: R17 Unspecified jaundice (principal); R00.2 Palpitations
CPT/HCPCS: 36415; 80053; 80061

== ENCOUNTER → 2024-12-02 | Outpatient (CLI) | payer BC, SELFPAY ==
[2024-12-02 12:32] LABS: Erythrocyte Sedimentation Rate < 1 mm/hr (0-20)
[2024-12-02 12:43] LABS: ALB/GLOB Ratio 1.9 RATIO (0.9-2.4); AST(SGOT) 20 U/L (<=37); Alanine Aminotransfer ALT/SGPT 16 U/L (<=46); Albumin, Serum 4.6 g/dL (3.5-5.0); Alkaline Phosphatase 43 U/L (40-129); Anion Gap 11 (5-15); BUN 15 mg/dL (4-19); BUN/Creat Ratio 14.4 RATIO (10-20); Calcium,Total 9.4 mg/dL (7.6-11.0); Carbon Dioxide 26.3 mmol/L (21.0-32.0); Chloride 104 mmol/L (98-108); Creatinine, Serum 1.07 mg/dL (0.70-1.20); EST Glomerular Filtration Rate 95 (>60); Globulin 2.4 g/dL (2.2-4.2); Glucose 96 mg/dL (70-99); Potassium 4.2 mmol/L (3.3-5.1); Protein, Total 7.1 g/dL (5.9-8.4); Sodium Level 141 mmol/L (133-145); Total Bilirubin 1.23 mg/dL (0.00-1.30)
[2024-12-02 12:46] LABS: CRP < 3.00 mg/L (0.0-3.0)
== END | disposition home or self-care (01) ==
LOC: MFPLAB 09:50
PROVIDERS: PCP Family Medicine; Referring Provider Family Medicine; Visit Provider Family Medicine
DX: R17 Unspecified jaundice (principal); M94.0 Chondrocostal junction syndrome [Tietze]
CPT/HCPCS: 36415; 80053; 85652; 86140

== ENCOUNTER → 2025-03-02 | Outpatient (CLI) | payer BC, SELFPAY ==
--- NOTE | 2025-03-02 16:10 | RAD_ITS ---
PROCEDURE: SACRUM-COCCYX MIN 2 VIEWS 03/02/2025 REASON FOR EXAM: TAILBONE INJURY TECHNIQUE: SACRUM-COCCYX 3 VIEWS COMPARISON: None. RAD/Sacrum-Coccyx min 2 Views IMPRESSION: A surgical clip is seen at the central to right pelvis. Mild degenerative changes are seen of the lumbosacral junction. Sacroiliac joints themselves are unremarkable in appearance. No fracture, dislocation, or other significant osseous abnormality is noted. Reading Location: [place] [address]
== END | disposition home or self-care (01) ==
LOC: MTRAD 16:03
PROVIDERS: PCP Family Medicine; Referring Provider Family Medicine; Visit Provider Family Medicine
DX: S39.92XA Unspecified injury of lower back, initial encounter (principal)
CPT/HCPCS: 72220